=== PATIENT | female | born 1935 | race Caucasian/White ===

== ENCOUNTER → 2017-07-03 | Outpatient (CLI) | payer MEDICARE, OTHER ==
[~2017-07-03] MED LIST: ACYC400T PO; AML5T PO; AZAT50TA22 PO; BACL10TA; CALC1177 PO; CHOL20009 PO; FLUT250M2 INH; HYDR-4683 GT; HYDR12.56 PO; OMEP20CA74 PO; PERCOT PO; PRED-188 PO; TIOTCAP INH; WARF1TAB PO
[2017-07-03 14:12] LABS: Prothrombin Time 64.8 sec (9.37-12.3)
[2017-07-04 09:40] LABS: INR 5.84 (0.9-1.15)
== END | disposition home or self-care (01) ==
LOC: LAB 12:05
DX: Z86.711 Personal history of pulmonary embolism (principal)
CPT/HCPCS: 36415; 85610

== ENCOUNTER → 2017-07-14 | Outpatient (CLI) | payer MEDICARE, OTHER ==
[2017-07-14 15:15] LABS: INR 1.32 (0.9-1.15); Prothrombin Time 14.4 sec (9.37-12.3)
== END | disposition home or self-care (01) ==
LOC: LAB 14:08
DX: Z86.711 Personal history of pulmonary embolism (principal)
CPT/HCPCS: 36415; 85610

== ENCOUNTER → 2017-11-05 | Outpatient (CLI) | payer MEDICARE, OTHER | END | disposition home or self-care (01) | LOC: LAB 15:23 | PROVIDERS: ATTEND Obstetrics & Gynecology | DX: N39.0 Urinary tract infection, site not specified (principal); N18.3 Chronic kidney disease, stage 3 (moderate); J45.909 Unspecified asthma, uncomplicated | CPT/HCPCS: 87086 ==

== ENCOUNTER → 2017-11-11 | Outpatient (CLI) | payer MEDICARE, OTHER ==
[~2017-11-11] MED LIST changes: +ALBUTEROL SULF 2.5 MG/0.5ML(0.5%) NEB SOLN ONE; +IOHEXOL 300 MG/ML 100ML BOTTLE IJ ONE
== END | disposition home or self-care (01) ==
LOC: RT 10-29 08:16
PROVIDERS: ATTEND Internal Medicine Pulmonary Disease
DX: J44.9 Chronic obstructive pulmonary disease, unspecified (principal); I12.9 Hypertensive chronic kidney disease with stage 1 through stage 4 chronic kidney disease, or unspecified chronic kidney disease; N18.3 Chronic kidney disease, stage 3 (moderate)
CPT/HCPCS: 94060; 94640

== ENCOUNTER 2018-02-24 09:04 | Inpatient (IN) | payer MEDICARE, OTHER ==
[~2018-02-24] VITALS: Ht 152.4 cm; Wt 58.5 kg
[~2018-02-24 09:04] MED LIST changes: -ALBUTEROL SULF 2.5 MG/0.5ML(0.5%) NEB SOLN ONE; -IOHEXOL 300 MG/ML 100ML BOTTLE IJ ONE
[2018-02-24 09:37] LABS: Basophils # (auto) 0 uL; Basophils % (auto) 0.6 % (0.0-2.0); Eosinophils # (auto) 0.3 uL; Eosinophils % (auto) 4.2 % (0.0-7.0); Hematocrit 31.3 % (36.0-46.0); Hemoglobin 10.1 g/dL (12.2-16.2); Lymphocytes # (auto) 0.8 uL; Lymphocytes % (auto) 12.2 % (10.0-50.0); Mean Corpuscular Hemoglobin 27.9 pg (28.0-32.0); Mean Corpuscular Hgb Conc. 32.2 g/dL (32.0-36.0); Mean Corpuscular Volume 86.6 fL (80.0-100.0); Monocytes # (auto) 0.5 uL; Neutrophils # (auto) 4.7 uL; Platelet Count (auto) 321 10^3/uL (140-450); Red Blood Cells 3.61 10^6/uL (4.0-5.20); White Blood Cell 6.3 10^3/uL (4.4-10.8)
[2018-02-24 09:55] LABS: Alanine Aminotransferase 16 U/L (13-56); Albumin 3.5 g/dL (3.4-5.0); Alkaline Phosphatase 90 U/L (45-117); Anion Gap 9 (5-15); Aspartate Aminotransferase 9 U/L (15-37); BUN/Creatinine Ratio 20.6; Bilirubin, Total 0.3 mg/dL (0.2-1.0); Blood Urea Nitrogen 58 mg/dL (7-18); Carbon Dioxide 24 mmol/L (21-32); Chloride 106 mmol/L (98-107); GFR African American 21 mL/min; GFR Non-African American 17 mL/min; Glucose 87 mg/dL (74-106); Magnesium 2.3 mg/dL (1.6-2.6); Potassium 4.3 mmol/L (3.5-5.1); Sodium 139 mmol/L (136-145); Total Protein 7.3 g/dL (6.4-8.2)
[2018-02-24 11:29] LABS: Urine Bacteria NONE SEEN /hpf (None Seen); Urine Blood 3+ /uL (Negative); Urine WBC 15 /hpf (0 - 5)
[2018-02-24] MEDS ORDERED: SODIUM CHLORIDE 0.9% 1,000 ML IV ONE (12:00)
[2018-02-24] MEDS ORDERED: methylPREDNISolone SOD SUCC 500 MG in SODIUM CHL 0.9% 100 ML IV ONE (12:00)
[2018-02-24] MEDS ORDERED: amLODIPine BESYLATE 5 MG TAB PO ONE (13:45)
[2018-02-24] MEDS ORDERED: ONDANSETRON HCL 4 MG/2 ML VIAL IV PRN (13:45)
[2018-02-24] MEDS ORDERED: MORPHINE SULF INJ 2 MG/ML SYRINGE 1ML IV PRN (13:45)
[2018-02-24] MEDS ORDERED: cefTRIAXone 1GM/10ml IVPUSH 10 ML IV ONE ×2 (13:45)
[2018-02-24] MEDS: SODIUM CHLORIDE 0.9% 1,000 ML IV SCH (14:07)
[2018-02-24 15:49] VITALS: BP 155/70
[2018-02-24 16:25] VITALS: BP 158/70
[2018-02-24] MEDS ORDERED: UMEC1AER IN (16:33)
[2018-02-24] MEDS ORDERED: RISE35TA PO (16:33)
[2018-02-24 16:47] LABS: INR 2.33 (0.9-1.15); Prothrombin Time 23.8 sec (9.27-12.13)
[2018-02-24] MEDS: HYDROcodone-ACET 5/325MG TAB PO PRN (17:26)
[2018-02-24] MEDS: ALBUTEROL SULF 2.5 MG/0.5ML(0.5%) NEB SOLN NEB SCH (20:00)
[2018-02-24] MEDS: IPRATROPIUM BROM 0.5 MG/2.5ML INH SOL NEB SCH (20:01)
[2018-02-24 21:14] VITALS: BP 158/70
[2018-02-24 22:00] VITALS: BP 114/58
[2018-02-24 22:00] LABS: Protein, Urine 163.3 mg/dL (0.0-11.9)
[2018-02-25] MEDS: SODIUM CHLORIDE 0.9% 1,000 ML IV SCH ×2 (03:05→17:28)
[2018-02-25 05:00] VITALS: BP 129/61
[2018-02-25 06:07] LABS: INR 2.24 (0.9-1.15); Partial Thromboplastin Time 40.4 sec (23.78-33.04); Prothrombin Time 22.9 sec (9.27-12.13)
[2018-02-25 06:19] LABS: BUN/Creatinine Ratio 24.5; Calcium 8.5 mg/dL (8.5-10.1); Potassium 4.6 mmol/L (3.5-5.1)
[2018-02-25] MEDS: ALBUTEROL SULF 2.5 MG/0.5ML(0.5%) NEB SOLN NEB SCH ×5 (06:30→23:45)
[2018-02-25] MEDS: IPRATROPIUM BROM 0.5 MG/2.5ML INH SOL NEB SCH ×5 (06:30→23:44)
[2018-02-25 09:00] VITALS: BP 140/62
[2018-02-25] MEDS: cefTRIAXone 1GM/10ml IVPUSH 10 ML IV SCH (09:31)
[2018-02-25] MEDS: amLODIPine BESYLATE 5 MG TAB PO SCH (09:33)
[2018-02-25] MEDS: methylPREDNISolone SOD SUCC 1,000 MG in SODIUM CHL 0.9% 250 ML IV SCH (10:02)
[2018-02-25] MEDS ORDERED: PHYTONADIONE (VIT K)10 MG/ML 1ML VIAL SUBCUT ONE (12:30)
[2018-02-25 13:00] VITALS: BP 138/65
[2018-02-25 16:51] VITALS: BP 120/63
[2018-02-25 22:00] VITALS: BP 130/65
[2018-02-26] MEDS: SODIUM CHLORIDE 0.9% 1,000 ML IV SCH (04:49)
[2018-02-26 05:00] VITALS: BP 107/51
[2018-02-26 06:09] LABS: INR 1.73 (0.9-1.15); Partial Thromboplastin Time 32.2 sec (23.78-33.04); Prothrombin Time 17.9 sec (9.27-12.13)
[2018-02-26 06:29] LABS: BUN/Creatinine Ratio 30.3; Calcium 8.5 mg/dL (8.5-10.1); Potassium 4.1 mmol/L (3.5-5.1)
[2018-02-26] MEDS: ALBUTEROL SULF 2.5 MG/0.5ML(0.5%) NEB SOLN NEB SCH ×3 (07:47→19:22)
[2018-02-26] MEDS: IPRATROPIUM BROM 0.5 MG/2.5ML INH SOL NEB SCH ×3 (07:47→19:22)
[2018-02-26 08:11] VITALS: BP 134/69
[2018-02-26] MEDS: cefTRIAXone 1GM/10ml IVPUSH 10 ML IV SCH (09:45)
[2018-02-26] MEDS: amLODIPine BESYLATE 5 MG TAB PO SCH (09:46)
[2018-02-26 11:00] LABS: INR 1.44 (0.9-1.15); Partial Thromboplastin Time 29.6 sec (23.78-33.04); Prothrombin Time 15.1 sec (9.27-12.13)
[2018-02-26] MEDS: methylPREDNISolone SOD SUCC 1,000 MG in SODIUM CHL 0.9% 250 ML IV SCH (12:16)
[2018-02-26] MEDS ORDERED: ARTIFICIAL TEARS 15ml EACHEYE PRN (12:30)
[2018-02-26 13:00] VITALS: BP 140/74
[2018-02-26 16:15] VITALS: BP 151/64
[2018-02-26] MEDS ORDERED: SODIUM CHLORIDE 0.9% 1,000 ML IV SCH (16:45)
[2018-02-26] MEDS: HYDROcodone-ACET 5/325MG TAB PO PRN (16:48)
[2018-02-26 21:30] VITALS: BP 126/59
[2018-02-26] MEDS: ARTIFICIAL TEAR OPTH(EYE) OINT 3.5GM EACHEYE SCH (22:00)
[2018-02-27] VITALS (7 sets, daily range): BP systolic 127–138; BP diastolic 69–74
[2018-02-27 06:32] LABS: Calcium 8.5 mg/dL (8.5-10.1)
[2018-02-27 06:34] LABS: BUN/Creatinine Ratio 29.2
[2018-02-27] MEDS: IPRATROPIUM BROM 0.5 MG/2.5ML INH SOL NEB SCH ×4 (07:22→18:43)
[2018-02-27] MEDS: ALBUTEROL SULF 2.5 MG/0.5ML(0.5%) NEB SOLN NEB SCH ×4 (07:22→18:43)
[2018-02-27] MEDS: amLODIPine BESYLATE 5 MG TAB PO SCH (09:02)
[2018-02-27] MEDS: cefTRIAXone 1GM/10ml IVPUSH 10 ML IV SCH (09:02)
[2018-02-27] MEDS ORDERED: SODIUM CHLORIDE 0.9% 500 ML IV ONE (11:15)
[2018-02-27 12:32] LABS: Basophils # (auto) 0 uL; Eosinophils # (auto) 0 uL; Hematocrit 28.1 % (36.0-46.0); Hemoglobin 9.3 g/dL (12.2-16.2); Lymphocytes # (auto) 0.3 uL; Lymphocytes % (auto) 3.9 % (10.0-50.0); Mean Corpuscular Hemoglobin 29.1 pg (28.0-32.0); Mean Corpuscular Hgb Conc. 33.2 g/dL (32.0-36.0); Mean Corpuscular Volume 87.4 fL (80.0-100.0); Monocytes # (auto) 0.5 uL; Monocytes % (auto) 5.6 % (0.0-12.0); Neutrophils % (auto) 90.5 % (37.0-80.0); Platelet Count (auto) 319 10^3/uL (140-450); Red Blood Cells 3.22 10^6/uL (4.0-5.20); Red Cell Distribution Width 14.8 % (11.8-14.3); White Blood Cell 8.8 10^3/uL (4.4-10.8)
[2018-02-27] MEDS ORDERED: GELATIN 1 SPONGE SIZE 50 TOP ONE (13:07)
[2018-02-27] MEDS ORDERED: fentaNYL CITRATE 100 MCG/2 ML VL IV ONE ×2 (13:15→14:00)
[2018-02-27] MEDS ORDERED: fentaNYL CITRATE 100 MCG/2 ML VL ONE (13:20)
[2018-02-27] MEDS: HYDROcodone-ACET 5/325MG TAB PO PRN (14:39)
[2018-02-27] MEDS ORDERED: FUROSEMIDE 20 MG/2 ML VIAL IV ONE (15:15)
[2018-02-27 15:48] LABS: Hematocrit 27.5 % (36.0-46.0); Hemoglobin 9.2 g/dL (12.2-16.2); Mean Corpuscular Hgb Conc. 33.4 g/dL (32.0-36.0); Mean Corpuscular Volume 86.8 fL (80.0-100.0); Platelet Count (auto) 298 10^3/uL (140-450); Red Blood Cells 3.16 10^6/uL (4.0-5.20); Red Cell Distribution Width 14.7 % (11.8-14.3); White Blood Cell 7.1 10^3/uL (4.4-10.8)
[2018-02-27] MEDS: SODIUM CHLORIDE 0.9% 1,000 ML IV SCH (15:49)
[2018-02-27 16:50] LABS: Band Neutrophils % (manual) 0; Basophils % (manual) 0 (0.0-2.0); Blast Cells 0; Eosinophils % (manual) 0 (0-7); Metamyelocytes % 0; Myelocytes % 0; Promyelocytes % 0; Reactive Lymphocytes 0
[2018-02-27 17:27] LABS: Lymphocytes % (manual) 6 (10.0-50.0); Monocytes % (manual) 5 (0-12)
[2018-02-27] MEDS: ARTIFICIAL TEAR OPTH(EYE) OINT 3.5GM EACHEYE SCH (22:00)
[2018-02-28] VITALS (8 sets, daily range): BP systolic 133–152; BP diastolic 62–79
[2018-02-28] MEDS: ALBUTEROL SULF 2.5 MG/0.5ML(0.5%) NEB SOLN NEB SCH ×4 (00:40→19:11)
[2018-02-28] MEDS: IPRATROPIUM BROM 0.5 MG/2.5ML INH SOL NEB SCH ×4 (00:40→19:11)
[2018-02-28] MEDS: HYDROcodone-ACET 5/325MG TAB PO PRN ×3 (01:38→20:52)
[2018-02-28] MEDS: SODIUM CHLORIDE 0.9% 1,000 ML IV SCH ×2 (04:52→21:35)
[2018-02-28 06:08] LABS: Basophils # (auto) 0 uL; Eosinophils # (auto) 0 uL; Hematocrit 28.1 % (36.0-46.0); Hemoglobin 9.3 g/dL (12.2-16.2); Lymphocytes # (auto) 0.6 uL; Lymphocytes % (auto) 7.7 % (10.0-50.0); Mean Corpuscular Hemoglobin 28.6 pg (28.0-32.0); Mean Corpuscular Volume 86.5 fL (80.0-100.0); Monocytes # (auto) 0.9 uL; Monocytes % (auto) 11.3 % (0.0-12.0); Neutrophils # (auto) 6.4 uL; Nucleated Red Blood Cells % 0.1 %; Platelet Count (auto) 288 10^3/uL (140-450); Red Blood Cells 3.25 10^6/uL (4.0-5.20); Red Cell Distribution Width 14.6 % (11.8-14.3); White Blood Cell 7.9 10^3/uL (4.4-10.8)
[2018-02-28 06:34] LABS: BUN/Creatinine Ratio 27.9; Calcium 7.9 mg/dL (8.5-10.1); Potassium 3.8 mmol/L (3.5-5.1)
[2018-02-28] MEDS: amLODIPine BESYLATE 5 MG TAB PO SCH (09:18)
[2018-02-28] MEDS: cefTRIAXone 1GM/10ml IVPUSH 10 ML IV SCH (09:18)
[2018-02-28] MEDS: ARTIFICIAL TEAR OPTH(EYE) OINT 3.5GM EACHEYE SCH (22:00)
[2018-03-01 03:47] VITALS: BP 138/73
[2018-03-01] MEDS: ALBUTEROL SULF 2.5 MG/0.5ML(0.5%) NEB SOLN NEB SCH ×2 (06:00)
[2018-03-01] MEDS: IPRATROPIUM BROM 0.5 MG/2.5ML INH SOL NEB SCH ×2 (06:00)
[2018-03-01 06:55] LABS: Basophils # (auto) 0 uL; Basophils % (auto) 0.1 % (0.0-2.0); Eosinophils # (auto) 0.1 uL; Eosinophils % (auto) 1.3 % (0.0-7.0); Hematocrit 29.7 % (36.0-46.0); Lymphocytes # (auto) 0.8 uL; Lymphocytes % (auto) 10.9 % (10.0-50.0); Mean Corpuscular Hemoglobin 28.9 pg (28.0-32.0); Mean Corpuscular Hgb Conc. 33.5 g/dL (32.0-36.0); Mean Corpuscular Volume 86.2 fL (80.0-100.0); Monocytes # (auto) 0.6 uL; Monocytes % (auto) 8.2 % (0.0-12.0); Neutrophils % (auto) 79.5 % (37.0-80.0); Platelet Count (auto) 287 10^3/uL (140-450); Red Blood Cells 3.45 10^6/uL (4.0-5.20); Red Cell Distribution Width 14.4 % (11.8-14.3); White Blood Cell 7.6 10^3/uL (4.4-10.8)
[2018-03-01 06:58] LABS: Potassium 3.6 mmol/L (3.5-5.1)
[2018-03-01 07:05] LABS: BUN/Creatinine Ratio 25.5
[2018-03-01] MEDS: cefTRIAXone 1GM/10ml IVPUSH 10 ML IV SCH (08:51)
[2018-03-01 09:04] VITALS: BP 143/73
[2018-03-01] MEDS: amLODIPine BESYLATE 5 MG TAB PO SCH (10:00)
[2018-03-01] MEDS: HYDROcodone-ACET 5/325MG TAB PO PRN ×2 (12:00→14:01)
== END 2018-03-01 13:25 | disposition home or self-care (01) | DRG 542 ==
LOC: ER 09:04 → OVERFLOW 09:05 → WEST WING 15:48
PROVIDERS: ADMIT Internal Medicine; ATTEND Internal Medicine
PROC: 0TB13ZX Excision of Left Kidney, Percutaneous Approach, Diagnostic (ICD-10-PCS; principal; 2018-02-27)
DX: M31.31 Wegener's granulomatosis with renal involvement (principal); N17.0 Acute kidney failure with tubular necrosis; N39.0 Urinary tract infection, site not specified; N18.3 Chronic kidney disease, stage 3 (moderate); I48.91 Unspecified atrial fibrillation; J44.9 Chronic obstructive pulmonary disease, unspecified; I12.9 Hypertensive chronic kidney disease with stage 1 through stage 4 chronic kidney disease, or unspecified chronic kidney disease; I77.6 Arteritis, unspecified; K21.9 Gastro-esophageal reflux disease without esophagitis; Z79.01 Long term (current) use of anticoagulants; Z86.711 Personal history of pulmonary embolism; Z88.2 Allergy status to sulfonamides; Z88.5 Allergy status to narcotic agent
CPT/HCPCS: 10022; 36415; 71045; 74176; 76942; 80048; 80053; 81001; 82570; 83520; 83735; 84156; 84484; 85007; 85025; 85027; 85610; 85730; 86160; 86256; 93005; 94640; 96361; 96365; 96375; A6257; J0696; J3430

== ENCOUNTER 2018-03-16 09:23 | Inpatient (IN) | payer MEDICARE, OTHER ==
[~2018-03-16] VITALS: Ht 152.4 cm; Wt 57.7 kg
[~2018-03-16 09:23] MED LIST changes: -ACYC400T PO; -AZAT50TA22 PO; -FLUT250M2 INH; -HYDR-4683 GT; -HYDR12.56 PO; -OMEP20CA74 PO; -PRED-188 PO; +RISE35TA PO; +UMEC1AER IN
[2018-03-16] MEDS ORDERED: HYDROcodone-ACET 10/325MG TAB PO ONE (09:45)
[2018-03-16] MEDS ORDERED: LIDOCAINE 1% HCL (LOCAL ANESTH.) INJ 20ML MDV IJ ONE (10:15)
[2018-03-16 10:56] LABS: Basophils # (auto) 0 uL; Basophils % (auto) 0.3 % (0.0-2.0); Eosinophils # (auto) 0 uL; Eosinophils % (auto) 0.2 % (0.0-7.0); Hematocrit 31.1 % (36.0-46.0); Hemoglobin 10.2 g/dL (12.2-16.2); Lymphocytes # (auto) 0.5 uL; Lymphocytes % (auto) 3.9 % (10.0-50.0); Mean Corpuscular Hemoglobin 28.9 pg (28.0-32.0); Mean Corpuscular Hgb Conc. 32.8 g/dL (32.0-36.0); Mean Corpuscular Volume 88.1 fL (80.0-100.0); Monocytes # (auto) 0.9 uL; Monocytes % (auto) 7.5 % (0.0-12.0); Neutrophils # (auto) 10.9 uL; Neutrophils % (auto) 88.1 % (37.0-80.0); Platelet Count (auto) 228 10^3/uL (140-450); Red Blood Cells 3.53 10^6/uL (4.0-5.20); Red Cell Distribution Width 15.7 % (11.8-14.3); White Blood Cell 12.3 10^3/uL (4.4-10.8)
[2018-03-16 11:07] LABS: Urine Bacteria NONE SEEN /hpf (None Seen); Urine Blood 2+ /uL (Negative); Urine Specific Gravity 1.013 (1.001-1.035); Urine WBC 5 /hpf (0 - 5)
[2018-03-16 11:08] LABS: Albumin 3.1 g/dL (3.4-5.0); BUN/Creatinine Ratio 57.9; Calcium 8.8 mg/dL (8.5-10.1); Potassium 5.4 mmol/L (3.5-5.1)
[2018-03-16 11:10] LABS: INR 0.94 (0.9-1.15); Partial Thromboplastin Time 19.8 sec (23.78-33.04); Prothrombin Time 10.1 sec (9.27-12.13)
[2018-03-16 11:12] LABS: Bilirubin, Total 0.5 mg/dL (0.2-1.0); Total Protein 5.7 g/dL (6.4-8.2)
[2018-03-16] MEDS ORDERED: ALBUTEROL SULF 2.5 MG/0.5ML(0.5%) NEB SOLN HHN STA (11:40)
[2018-03-16] MEDS ORDERED: CALCIUM GLUC 4.65meq/50ml D5AE 50 ML IV ONE (11:45)
[2018-03-16] MEDS ORDERED: InsuLIN REG 1unit/0.01ml Soln (100units/ml) IV ONE (11:45)
[2018-03-16] MEDS ORDERED: SODIUM BICARBONATE 8.4% INJ 50ML SYRINGE IV ONE (11:45)
[2018-03-16] MEDS ORDERED: DEXTROSE (50%) 50ML SYRG IV ONE (11:45)
[2018-03-16] MEDS ORDERED: PANT40T PO (11:46)
[2018-03-16] MEDS ORDERED: SOD CHL 0.45% 1,000 ML IV ONE (12:30)
[2018-03-16] MEDS ORDERED: SULFAMETHOX W/TRIMETH(800/160MG) DS TAB PO ONE (12:45)
[2018-03-16] MEDS ORDERED: cefTRIAXone 1GM/10ml IVPUSH 10 ML IV ONE (13:30)
[2018-03-16] MEDS ORDERED: VANCOMYCIN PER PHARMACY 0 MG IV SCH (14:00)
[2018-03-16] MEDS ORDERED: WARFARIN SODIUM 1 MG TAB PO ONE (14:00)
[2018-03-16] MEDS ORDERED: WARFARIN SODIUM 5 MG TAB PO ONE (14:00)
[2018-03-16] MEDS ORDERED: DEXTROSE (50%) 50ML SYRG IV PRN (14:00)
[2018-03-16] MEDS ORDERED: ACETAMINOPHEN 325 MG TAB PO PRN (14:15)
[2018-03-16] MEDS ORDERED: MORPHINE SULF INJ 2 MG/ML SYRINGE 1ML IV PRN ×2 (14:15)
[2018-03-16] MEDS ORDERED: NITROGLYCERIN 0.4 MG SL TAB SL PRN (14:15)
[2018-03-16] MEDS ORDERED: TEMAZEPAM 15 MG CAP PO PRN (14:15)
[2018-03-16] MEDS ORDERED: ONDANSETRON HCL 4 MG/2 ML VIAL IV PRN (14:15)
[2018-03-16] MEDS ORDERED: predniSONE 20 MG TAB PO ONE (14:15)
[2018-03-16] MEDS: FAMOTIDINE 20 MG TAB PO SCH (14:25)
[2018-03-16 14:29] LABS: Protein, Urine 78.7 mg/dL (0.0-11.9)
[2018-03-16] MEDS ORDERED: VANCOMYCIN 1GM/250ML 250 ML IV ONE (15:00)
[2018-03-16] MEDS: InsuLIN REG 1unit/0.01ml Soln (100units/ml) SC SCH ×2 (17:00→21:47)
[2018-03-16] MEDS: ACCU-CHEK COMFORT CURVE STRIP VI SCH ×2 (17:09→21:47)
[2018-03-16 17:45] VITALS: BP 154/79
[2018-03-16] MEDS: Glucerna Carbsteady SHAKE Vanilla 8oz PO SCH (19:17)
[2018-03-16 19:19] LABS: BUN/Creatinine Ratio 47.8; Calcium 8.3 mg/dL (8.5-10.1); Potassium 4.6 mmol/L (3.5-5.1)
[2018-03-16] MEDS: CALCIUM CARB 500 MG CHEW TAB PO SCH (21:47)
[2018-03-16] MEDS: SODIUM CHLOR 0.9% PF (SALINE LOCK) 10ML VIAL/SYR IV SCH (21:48)
[2018-03-16] MEDS: OXYCODONE W/ ACETAMINOPHEN 5/325MG TABLET PO PRN (21:59)
[2018-03-16 22:00] VITALS: BP 130/56
[2018-03-16] MEDS ORDERED: FAMOTIDINE 20 MG TAB PO SCH (22:00)
[2018-03-17] MEDS ORDERED: HYDR12.56 PO (01:05)
[2018-03-17] MEDS: OXYCODONE W/ ACETAMINOPHEN 5/325MG TABLET PO PRN ×3 (04:41→23:42)
[2018-03-17 05:19] VITALS: BP 138/69
[2018-03-17 05:34] LABS: Basophils # (auto) 0 uL; Basophils % (auto) 0.1 % (0.0-2.0); Eosinophils # (auto) 0 uL; Hematocrit 28.4 % (36.0-46.0); Hemoglobin 9.3 g/dL (12.2-16.2); Lymphocytes # (auto) 0.1 uL; Lymphocytes % (auto) 1.4 % (10.0-50.0); Mean Corpuscular Hemoglobin 28.8 pg (28.0-32.0); Mean Corpuscular Hgb Conc. 32.9 g/dL (32.0-36.0); Mean Corpuscular Volume 87.4 fL (80.0-100.0); Monocytes # (auto) 0.4 uL; Monocytes % (auto) 3.7 % (0.0-12.0); Neutrophils # (auto) 9.4 uL; Neutrophils % (auto) 94.8 % (37.0-80.0); Nucleated Red Blood Cells % 0.1 %; Platelet Count (auto) 201 10^3/uL (140-450); Red Blood Cells 3.24 10^6/uL (4.0-5.20); Red Cell Distribution Width 15.9 % (11.8-14.3); White Blood Cell 9.9 10^3/uL (4.4-10.8)
[2018-03-17 05:38] LABS: INR 0.94 (0.9-1.15); Partial Thromboplastin Time 20.1 sec (23.78-33.04); Prothrombin Time 10.1 sec (9.27-12.13)
[2018-03-17 05:55] LABS: Albumin 2.9 g/dL (3.4-5.0); BUN/Creatinine Ratio 47.5; Bilirubin, Total 0.3 mg/dL (0.2-1.0); Calcium 8.3 mg/dL (8.5-10.1); Total Protein 5.6 g/dL (6.4-8.2)
[2018-03-17 06:11] LABS: Potassium 5.6 mmol/L (3.5-5.1)
[2018-03-17] MEDS: SODIUM CHLOR 0.9% PF (SALINE LOCK) 10ML VIAL/SYR IV SCH ×3 (06:11→21:48)
[2018-03-17] MEDS: InsuLIN REG 1unit/0.01ml Soln (100units/ml) SC SCH ×4 (06:12→21:37)
[2018-03-17] MEDS: ACCU-CHEK COMFORT CURVE STRIP VI SCH ×4 (06:12→21:38)
[2018-03-17] MEDS ORDERED: InsuLIN REG 1unit/0.01ml Soln (100units/ml) IV ONE (06:30)
[2018-03-17] MEDS ORDERED: CALCIUM GLUC 4.65meq/50ml D5AE 50 ML IV ONE (06:30)
[2018-03-17] MEDS ORDERED: DEXTROSE (50%) 50ML SYRG IV ONE (06:30)
[2018-03-17] MEDS ORDERED: SODIUM BICARBONATE 8.4% INJ 50ML SYRINGE IV ONE (06:30)
[2018-03-17] MEDS: Glucerna Carbsteady SHAKE Vanilla 8oz PO SCH ×3 (07:56→19:19)
[2018-03-17 08:04] VITALS: BP 131/72
[2018-03-17] MEDS: cefTRIAXone 1GM/10ml IVPUSH 10 ML IV SCH (09:12)
[2018-03-17] MEDS: predniSONE 20 MG TAB PO SCH (09:13)
[2018-03-17] MEDS: VANCOMYCIN 1GM/250ML 250 ML IV SCH (09:13)
[2018-03-17] MEDS: CHOLECALCIFEROL (VITD3) 1,000 UNIT TAB PO SCH (09:14)
[2018-03-17] MEDS: MULTIPLE VITAMIN TAB PO SCH (09:15)
[2018-03-17] MEDS: amLODIPine BESYLATE 5 MG TAB PO SCH (09:15)
[2018-03-17] MEDS: CALCIUM CARB 500 MG CHEW TAB PO SCH ×2 (09:15→21:48)
[2018-03-17] MEDS: FAMOTIDINE 20 MG TAB PO SCH (09:16)
[2018-03-17] MEDS ORDERED: HCTZ 25 MG TAB PO SCH (10:00)
[2018-03-17 11:51] VITALS: BP 147/80
[2018-03-17] MEDS ORDERED: SOD CHL 0.45% 1,000 ML IV ONE (13:15)
[2018-03-17] MEDS: ANORO ELLIPTA IN SCH (14:51)
[2018-03-17] MEDS ORDERED: WARFARIN SODIUM 2 MG TAB PO ONE (17:00)
[2018-03-17 17:42] VITALS: BP 139/58
[2018-03-17] MEDS ORDERED: ALPRAZolam 0.25 MG TAB PO ONE (18:00)
[2018-03-17 22:00] VITALS: BP 116/54
[2018-03-18 05:00] VITALS: BP 153/74
[2018-03-18 06:58] LABS: Basophils # (auto) 0 uL; Basophils % (auto) 0.1 % (0.0-2.0); Eosinophils # (auto) 0 uL; Eosinophils % (auto) 0.4 % (0.0-7.0); Hematocrit 28.8 % (36.0-46.0); Hemoglobin 9.9 g/dL (12.2-16.2); Lymphocytes # (auto) 0.5 uL; Lymphocytes % (auto) 5.1 % (10.0-50.0); Mean Corpuscular Hemoglobin 30.1 pg (28.0-32.0); Mean Corpuscular Hgb Conc. 34.4 g/dL (32.0-36.0); Mean Corpuscular Volume 87.6 fL (80.0-100.0); Monocytes # (auto) 0.7 uL; Neutrophils # (auto) 7.7 uL; Neutrophils % (auto) 86.4 % (37.0-80.0); Nucleated Red Blood Cells % 0.1 %; Platelet Count (auto) 179 10^3/uL (140-450); Red Blood Cells 3.29 10^6/uL (4.0-5.20); Red Cell Distribution Width 15.4 % (11.8-14.3); White Blood Cell 8.9 10^3/uL (4.4-10.8)
[2018-03-18] MEDS: InsuLIN REG 1unit/0.01ml Soln (100units/ml) SC SCH ×4 (07:00→21:42)
[2018-03-18 07:07] LABS: INR 1.1 (0.9-1.15); Partial Thromboplastin Time 22.8 sec (23.78-33.04); Prothrombin Time 11.7 sec (9.27-12.13)
[2018-03-18] MEDS: SODIUM CHLOR 0.9% PF (SALINE LOCK) 10ML VIAL/SYR IV SCH ×3 (07:14→21:26)
[2018-03-18] MEDS: ACCU-CHEK COMFORT CURVE STRIP VI SCH ×4 (07:15→21:26)
[2018-03-18 07:22] LABS: BUN/Creatinine Ratio 45.9; Calcium 8.4 mg/dL (8.5-10.1)
[2018-03-18] MEDS: OXYCODONE W/ ACETAMINOPHEN 5/325MG TABLET PO PRN ×3 (07:37→23:57)
[2018-03-18] MEDS: Glucerna Carbsteady SHAKE Vanilla 8oz PO SCH ×3 (08:01→18:08)
[2018-03-18 09:02] VITALS: BP 150/72
[2018-03-18] MEDS: ANORO ELLIPTA IN SCH (10:00)
[2018-03-18] MEDS: MULTIPLE VITAMIN TAB PO SCH (10:20)
[2018-03-18] MEDS: CHOLECALCIFEROL (VITD3) 1,000 UNIT TAB PO SCH (10:20)
[2018-03-18] MEDS: DOCUSATE SOD 100 MG CAP PO PRN (10:20)
[2018-03-18] MEDS: predniSONE 20 MG TAB PO SCH (10:21)
[2018-03-18] MEDS: CALCIUM CARB 500 MG CHEW TAB PO SCH ×2 (10:22→21:25)
[2018-03-18] MEDS: amLODIPine BESYLATE 5 MG TAB PO SCH (10:22)
[2018-03-18] MEDS: FAMOTIDINE 20 MG TAB PO SCH (10:22)
[2018-03-18] MEDS: VANCOMYCIN 1GM/250ML 250 ML IV SCH (10:23)
[2018-03-18] MEDS: cefTRIAXone 1GM/10ml IVPUSH 10 ML IV SCH (10:23)
[2018-03-18 15:20] VITALS: BP 155/68
[2018-03-18] MEDS ORDERED: LIDOCAINE 5% TOPICAL PATCH TOP ONE (15:30)
[2018-03-18 17:00] VITALS: BP 142/79
[2018-03-18] MEDS ORDERED: WARFARIN SODIUM 5 MG TAB PO ONE (17:00)
[2018-03-18 22:00] VITALS: BP 125/67
[2018-03-19 05:00] VITALS: BP 161/78
[2018-03-19] MEDS: ACCU-CHEK COMFORT CURVE STRIP VI SCH ×4 (06:20→22:00)
[2018-03-19] MEDS: SODIUM CHLOR 0.9% PF (SALINE LOCK) 10ML VIAL/SYR IV SCH ×3 (06:20→21:39)
[2018-03-19] MEDS: InsuLIN REG 1unit/0.01ml Soln (100units/ml) SC SCH ×4 (06:21→22:01)
[2018-03-19 08:00] VITALS: BP 150/72
[2018-03-19] MEDS: Glucerna Carbsteady SHAKE Vanilla 8oz PO SCH ×3 (08:13→17:53)
[2018-03-19] MEDS: MULTIPLE VITAMIN TAB PO SCH (08:13)
[2018-03-19] MEDS: DOCUSATE SOD 100 MG CAP PO PRN (08:13)
[2018-03-19] MEDS: CALCIUM CARB 500 MG CHEW TAB PO SCH ×2 (08:13→21:39)
[2018-03-19] MEDS: amLODIPine BESYLATE 5 MG TAB PO SCH (08:18)
[2018-03-19] MEDS: OXYCODONE W/ ACETAMINOPHEN 5/325MG TABLET PO PRN ×3 (08:19→20:13)
[2018-03-19] MEDS: predniSONE 20 MG TAB PO SCH (08:19)
[2018-03-19] MEDS: CHOLECALCIFEROL (VITD3) 1,000 UNIT TAB PO SCH (08:19)
[2018-03-19] MEDS: FAMOTIDINE 20 MG TAB PO SCH (08:19)
[2018-03-19] MEDS: cefTRIAXone 1GM/10ml IVPUSH 10 ML IV SCH (08:20)
[2018-03-19 09:00] VITALS: BP 131/66
[2018-03-19 09:33] LABS: INR 1.75 (0.9-1.15); Partial Thromboplastin Time 25.2 sec (23.78-33.04); Prothrombin Time 18.1 sec (9.27-12.13)
[2018-03-19 09:48] LABS: Albumin 2.8 g/dL (3.4-5.0); BUN/Creatinine Ratio 45.2; Calcium 8.2 mg/dL (8.5-10.1); Potassium 4.3 mmol/L (3.5-5.1)
[2018-03-19 09:51] LABS: Bilirubin, Total 0.6 mg/dL (0.2-1.0); Total Protein 5.8 g/dL (6.4-8.2)
[2018-03-19] MEDS: ANORO ELLIPTA IN SCH (10:00)
[2018-03-19] MEDS: VANCOMYCIN 1GM/250ML 250 ML IV SCH (10:08)
[2018-03-19] MEDS: LIDOCAINE 5% TOPICAL PATCH TOP SCH (10:08)
[2018-03-19] MEDS ORDERED: SODIUM CHLORIDE 0.9% 1,000 ML IV ONE (10:15)
[2018-03-19 13:00] VITALS: BP 134/68
[2018-03-19] MEDS ORDERED: LACTULOSE 20Gm/30ML SOLN PO PRN (14:00)
[2018-03-19] MEDS ORDERED: LACTULOSE 20Gm/30ML SOLN PO ONE (14:00)
[2018-03-19] MEDS ORDERED: WARFARIN SODIUM 5 MG TAB PO ONE (17:00)
[2018-03-19 17:04] VITALS: BP 148/74
[2018-03-19 22:00] VITALS: BP_SYST 109; BP_SYST 141; BP_DIAS 60; BP_DIAS 70
[2018-03-20] VITALS (7 sets, daily range): BP systolic 103–140; BP diastolic 61–82
[2018-03-20] MEDS: InsuLIN REG 1unit/0.01ml Soln (100units/ml) SC SCH ×4 (05:41→21:01)
[2018-03-20] MEDS: ACCU-CHEK COMFORT CURVE STRIP VI SCH ×4 (05:41→21:01)
[2018-03-20] MEDS: SODIUM CHLOR 0.9% PF (SALINE LOCK) 10ML VIAL/SYR IV SCH ×3 (05:42→21:01)
[2018-03-20 07:41] LABS: Hematocrit 34.4 % (36.0-46.0); Hemoglobin 11.7 g/dL (12.2-16.2)
[2018-03-20] MEDS: OXYCODONE W/ ACETAMINOPHEN 5/325MG TABLET PO PRN ×2 (07:46→18:06)
[2018-03-20 07:53] LABS: INR 3.82 (0.9-1.15); Prothrombin Time 37.9 sec (9.27-12.13)
[2018-03-20 08:00] LABS: BUN/Creatinine Ratio 44.6; Calcium 8.6 mg/dL (8.5-10.1); Potassium 4.7 mmol/L (3.5-5.1)
[2018-03-20] MEDS: ANORO ELLIPTA IN SCH (09:44)
[2018-03-20] MEDS: VANCOMYCIN 1GM/250ML 250 ML IV SCH (09:44)
[2018-03-20] MEDS: cefTRIAXone 1GM/10ml IVPUSH 10 ML IV SCH (09:44)
[2018-03-20] MEDS: Glucerna Carbsteady SHAKE Vanilla 8oz PO SCH ×3 (09:44→18:06)
[2018-03-20] MEDS: FAMOTIDINE 20 MG TAB PO SCH (09:45)
[2018-03-20] MEDS: MULTIPLE VITAMIN TAB PO SCH (09:45)
[2018-03-20] MEDS: amLODIPine BESYLATE 5 MG TAB PO SCH (09:45)
[2018-03-20] MEDS: CALCIUM CARB 500 MG CHEW TAB PO SCH ×2 (09:45→21:01)
[2018-03-20] MEDS: predniSONE 20 MG TAB PO SCH (09:45)
[2018-03-20] MEDS: CHOLECALCIFEROL (VITD3) 1,000 UNIT TAB PO SCH (09:45)
[2018-03-20] MEDS: LIDOCAINE 5% TOPICAL PATCH TOP SCH (09:46)
[2018-03-20] MEDS ORDERED: DOXYCYCLINE 100 MG TAB/CAP PO ONE (10:45)
[2018-03-20] MEDS: DOCUSATE SOD 100 MG CAP PO PRN (12:22)
[2018-03-20] MEDS: CARISOPRODOL 350 MG TAB PO PRN (13:44)
[2018-03-20] MEDS: DOXYCYCLINE 100 MG TAB/CAP PO SCH (21:01)
[2018-03-21 00:12] VITALS: BP 140/82
[2018-03-21 05:00] VITALS: BP 149/69
[2018-03-21 05:45] LABS: Basophils # (auto) 0 uL; Basophils % (auto) 0.1 % (0.0-2.0); Eosinophils # (auto) 0 uL; Eosinophils % (auto) 0.5 % (0.0-7.0); Hematocrit 30.9 % (36.0-46.0); Hemoglobin 10.4 g/dL (12.2-16.2); Lymphocytes # (auto) 0.4 uL; Lymphocytes % (auto) 6.4 % (10.0-50.0); Mean Corpuscular Hemoglobin 29.2 pg (28.0-32.0); Mean Corpuscular Hgb Conc. 33.6 g/dL (32.0-36.0); Mean Corpuscular Volume 86.8 fL (80.0-100.0); Monocytes # (auto) 0.5 uL; Monocytes % (auto) 7.9 % (0.0-12.0); Neutrophils # (auto) 4.9 uL; Neutrophils % (auto) 85.1 % (37.0-80.0); Platelet Count (auto) 184 10^3/uL (140-450); Red Blood Cells 3.56 10^6/uL (4.0-5.20); Red Cell Distribution Width 15.7 % (11.8-14.3); White Blood Cell 5.8 10^3/uL (4.4-10.8)
[2018-03-21] MEDS: OXYCODONE W/ ACETAMINOPHEN 5/325MG TABLET PO PRN (05:48)
[2018-03-21 05:57] LABS: Prothrombin Time 55.5 sec (9.27-12.13)
[2018-03-21] MEDS: SODIUM CHLOR 0.9% PF (SALINE LOCK) 10ML VIAL/SYR IV SCH (06:00)
[2018-03-21 06:01] LABS: INR 5.73 (0.9-1.15)
[2018-03-21 06:04] LABS: BUN/Creatinine Ratio 43.9; Potassium 4.9 mmol/L (3.5-5.1)
[2018-03-21] MEDS: InsuLIN REG 1unit/0.01ml Soln (100units/ml) SC SCH ×2 (07:00→11:26)
[2018-03-21] MEDS: ACCU-CHEK COMFORT CURVE STRIP VI SCH ×2 (07:24→11:26)
[2018-03-21 08:00] VITALS: BP 137/72
[2018-03-21] MEDS: MULTIPLE VITAMIN TAB PO SCH (09:44)
[2018-03-21] MEDS: predniSONE 20 MG TAB PO SCH (09:44)
[2018-03-21] MEDS: CHOLECALCIFEROL (VITD3) 1,000 UNIT TAB PO SCH (09:44)
[2018-03-21] MEDS: FAMOTIDINE 20 MG TAB PO SCH (09:44)
[2018-03-21] MEDS: CALCIUM CARB 500 MG CHEW TAB PO SCH (09:44)
[2018-03-21] MEDS: DOXYCYCLINE 100 MG TAB/CAP PO SCH (09:44)
[2018-03-21] MEDS: CARISOPRODOL 350 MG TAB PO PRN (09:45)
[2018-03-21] MEDS: amLODIPine BESYLATE 5 MG TAB PO SCH (09:45)
[2018-03-21] MEDS: Glucerna Carbsteady SHAKE Vanilla 8oz PO SCH (09:46)
[2018-03-21] MEDS: ANORO ELLIPTA IN SCH (10:00)
[2018-03-21] MEDS: LIDOCAINE 5% TOPICAL PATCH TOP SCH (10:00)
[2018-03-21 12:36] VITALS: BP 122/62
[2018-03-21 16:35] VITALS: BP 128/78
[2018-03-22] MEDS ORDERED: ACTONEL 35 MG PO SCH (06:00)
[2018-03-23 14:12] LABS: Hepatitis B Surface Antigen Negative (Negative); Hepatitis C Antibody Negative (Negative)
[2018-03-24 06:05] LABS: RPR Non Reactive (Non Reactive)
== END 2018-03-21 16:15 | disposition home health service (06) | DRG 871 ==
LOC: ER 09:23 → EDBD 09:23 → TELE 09:24 → TELE-WESTW 17:28 → WEST WING 03-19 11:54
PROVIDERS: ADMIT Internal Medicine; ATTEND Internal Medicine
DX: A41.9 Sepsis, unspecified organism (principal); I26.99 Other pulmonary embolism without acute cor pulmonale; N17.9 Acute kidney failure, unspecified; M31.30 Wegener's granulomatosis without renal involvement; E44.0 Moderate protein-calorie malnutrition; N39.0 Urinary tract infection, site not specified; S37.019A Minor contusion of unspecified kidney, initial encounter; E87.5 Hyperkalemia; J44.9 Chronic obstructive pulmonary disease, unspecified; N18.3 Chronic kidney disease, stage 3 (moderate); I77.6 Arteritis, unspecified; D63.8 Anemia in other chronic diseases classified elsewhere; I12.9 Hypertensive chronic kidney disease with stage 1 through stage 4 chronic kidney disease, or unspecified chronic kidney disease; I25.10 Atherosclerotic heart disease of native coronary artery without angina pectoris; K21.9 Gastro-esophageal reflux disease without esophagitis; K57.30 Diverticulosis of large intestine without perforation or abscess without bleeding; M81.0 Age-related osteoporosis without current pathological fracture; B96.89 Other specified bacterial agents as the cause of diseases classified elsewhere; M19.90 Unspecified osteoarthritis, unspecified site; M54.9 Dorsalgia, unspecified; M62.838 Other muscle spasm; R73.9 Hyperglycemia, unspecified; X58.XXXA Exposure to other specified factors, initial encounter; T38.0X5A Adverse effect of glucocorticoids and synthetic analogues, initial encounter; T37.0X5A Adverse effect of sulfonamides, initial encounter; Y92.89 Other specified places as the place of occurrence of the external cause; Z88.5 Allergy status to narcotic agent; Z88.2 Allergy status to sulfonamides; Z90.49 Acquired absence of other specified parts of digestive tract; Z79.01 Long term (current) use of anticoagulants; Z86.711 Personal history of pulmonary embolism; Z90.710 Acquired absence of both cervix and uterus; Z68.24 Body mass index [BMI] 24.0-24.9, adult; Y93.89 Activity, other specified; Y99.8 Other external cause status
CPT/HCPCS: 36415; 74176; 80048; 80053; 80202; 81001; 82570; 82962; 83036; 83520; 84156; 84443; 85014; 85018; 85025; 85610; 85730; 86038; 86160; 86256; 86592; 86803; 87040; 87077; 87081; 87086; 87186; 87340; 93005; 94640; 96374; 96375; 97110; 97116; 97163; 97530; J0610; J0696; J1815

== ENCOUNTER 2018-03-30 14:04 | Emergency (ER) | payer MEDICARE, OTHER ==
[~2018-03-30] VITALS: Ht 152.4 cm; Wt 57.6 kg
[~2018-03-30 14:04] MED LIST changes: -BACL10TA; +HYDR12.56 PO; +PANT40T PO; -TIOTCAP INH
[2018-03-30] MEDS ORDERED: OXYCODONE W/ ACETAMINOPHEN 5/325MG TABLET PO ONE (15:15)
[2018-03-30 16:49] VITALS: BP 142/74
== END 2018-03-30 16:54 | disposition home or self-care (01) ==
LOC: EDUNIT# 14:04 → EDBD 14:04 → ER 14:04
DX: M54.5 Low back pain (principal); M79.1 Myalgia; J44.9 Chronic obstructive pulmonary disease, unspecified; K21.9 Gastro-esophageal reflux disease without esophagitis; I10 Essential (primary) hypertension; I26.99 Other pulmonary embolism without acute cor pulmonale; Z88.5 Allergy status to narcotic agent; Z88.2 Allergy status to sulfonamides; Z79.899 Other long term (current) drug therapy; Z90.710 Acquired absence of both cervix and uterus
CPT/HCPCS: 74176; 93005

== ENCOUNTER 2018-04-05 17:22 | Inpatient (IN) | payer MEDICARE, OTHER ==
[~2018-04-05] VITALS: Ht 162.6 cm; Wt 70.5 kg
[2018-04-05] MEDS ORDERED: SODIUM CHLORIDE 0.9% 1,000 ML IVB ONE (18:05)
[2018-04-05 18:27] LABS: Hematocrit 29.1 % (36.0-46.0); Hemoglobin 9.7 g/dL (12.2-16.2); Mean Corpuscular Hemoglobin 29.9 pg (28.0-32.0); Mean Corpuscular Hgb Conc. 33.3 g/dL (32.0-36.0); Mean Corpuscular Volume 89.8 fL (80.0-100.0); Platelet Count (auto) 116 10^3/uL (140-450); Red Blood Cells 3.24 10^6/uL (4.0-5.20); Red Cell Distribution Width 17.6 % (11.8-14.3); White Blood Cell 7.7 10^3/uL (4.4-10.8)
[2018-04-05 18:33] LABS: Basophils % (manual) 0 (0.0-2.0); Blast Cells 0; Eosinophils % (manual) 0 (0-7); Metamyelocytes % 0; Myelocytes % 0; Promyelocytes % 0; Reactive Lymphocytes 0
[2018-04-05 18:39] LABS: Albumin 2.7 g/dL (3.4-5.0); BUN/Creatinine Ratio 43.8; Magnesium 2.2 mg/dL (1.6-2.6)
[2018-04-05 18:44] LABS: Bilirubin, Total 0.4 mg/dL (0.2-1.0); Total Protein 5.5 g/dL (6.4-8.2)
[2018-04-05] MEDS ORDERED: SODIUM CHLORIDE 0.9% 500 ML IV ONE (18:45)
[2018-04-05 19:02] LABS: Potassium 5.6 mmol/L (3.5-5.1)
[2018-04-05 19:07] LABS: Band Neutrophils % (manual) 1; Lymphocytes % (manual) 6 (10.0-50.0); Monocytes % (manual) 3 (0-12)
[2018-04-05] MEDS ORDERED: ONDANSETRON HCL 4 MG/2 ML VIAL IV ONE (20:00)
[2018-04-05] MEDS ORDERED: DEXTROSE (50%) 50ML SYRG IV ONE (20:00)
[2018-04-05] MEDS ORDERED: SODIUM BICARBONATE 8.4 % INJ 50ML VIAL IV ONE (20:00)
[2018-04-05] MEDS ORDERED: InsuLIN REG 1unit/0.01ml Soln (100units/ml) IV ONE (20:00)
[2018-04-05] MEDS ORDERED: MORPHINE SULF INJ 2 MG/ML SYRINGE 1ML IV ONE (20:00)
[2018-04-05] MEDS ORDERED: cefTRIAXone 1GM/10ml IVPUSH 10 ML IV ONE (21:45)
[2018-04-05] MEDS ORDERED: IPRATROPIUM BROM 0.5 MG/2.5ML INH SOL NEB ONE (23:00)
[2018-04-05] MEDS ORDERED: TEMAZEPAM 15 MG CAP PO PRN (23:00)
[2018-04-05] MEDS ORDERED: ALBUTEROL SULF 2.5 MG/0.5ML(0.5%) NEB SOLN NEB ONE (23:00)
[2018-04-05] MEDS ORDERED: ONDANSETRON HCL 4 MG/2 ML VIAL IV PRN (23:00)
[2018-04-05] MEDS ORDERED: ACETAMINOPHEN 500 MG TAB PO PRN (23:00)
[2018-04-05] MEDS ORDERED: HYDROcodone-ACET 5/325MG TAB PO PRN (23:00)
[2018-04-05] MEDS ORDERED: FUROSEMIDE 20 MG/2 ML VIAL IV ONE ×2 (23:00→23:15)
[2018-04-05] MEDS: DOXYCYCLINE 100MG/250ML 250 ML IV SCH (23:48)
[2018-04-06] VITALS (15 sets, daily range): BP systolic 57–155; BP diastolic 29–89
[2018-04-06] MEDS ORDERED: OXYCODONE W/ ACETAMINOPHEN 5/325MG TABLET PO PRN (02:00)
[2018-04-06 02:20] LABS: Urine Bacteria MOD /hpf (None Seen); Urine Blood 3+ /uL (Negative); Urine WBC 28 /hpf (0 - 5)
[2018-04-06] MEDS: ALBUTEROL SULF 2.5 MG/0.5ML(0.5%) NEB SOLN NEB SCH ×4 (05:54→23:55)
[2018-04-06] MEDS: IPRATROPIUM BROM 0.5 MG/2.5ML INH SOL NEB SCH ×4 (05:54→23:55)
[2018-04-06 06:17] LABS: Basophils # (auto) 0 uL; Basophils % (auto) 0.1 % (0.0-2.0); Eosinophils # (auto) 0 uL; Monocytes # (auto) 0.3 uL; Neutrophils # (auto) 5.1 uL; White Blood Cell 5.9 10^3/uL (4.4-10.8)
[2018-04-06 06:23] LABS: Eosinophils % (auto) 0.5 % (0.0-7.0); Hematocrit 24.8 % (36.0-46.0); Hemoglobin 7.7 g/dL (12.2-16.2); Lymphocytes # (auto) 0.5 uL; Lymphocytes % (auto) 7.7 % (10.0-50.0); Mean Corpuscular Hemoglobin 28.6 pg (28.0-32.0); Mean Corpuscular Volume 92.2 fL (80.0-100.0); Monocytes % (auto) 5.3 % (0.0-12.0); Neutrophils % (auto) 86.4 % (37.0-80.0); Platelet Count (auto) 98 10^3/uL (140-450); Red Blood Cells 2.69 10^6/uL (4.0-5.20)
[2018-04-06 06:47] LABS: BUN/Creatinine Ratio 42.8; Calcium 7.7 mg/dL (8.5-10.1); Potassium 5.4 mmol/L (3.5-5.1)
[2018-04-06] MEDS: MORPHINE SULF INJ 2 MG/ML SYRINGE 1ML IV PRN ×3 (08:34→19:46)
[2018-04-06] MEDS ORDERED: HCTZ 25 MG TAB PO SCH (10:00)
[2018-04-06] MEDS ORDERED: PANTOPRAZOLE 40 MG TAB PO SCH (10:00)
[2018-04-06] MEDS ORDERED: predniSONE 20 MG TAB PO SCH (10:00)
[2018-04-06] MEDS: DOXYCYCLINE 100MG/250ML 250 ML IV SCH (10:25)
[2018-04-06 10:48] LABS: INR > 10 (0.9-1.15)
[2018-04-06] MEDS ORDERED: PIPERACILLIN-TAZOB 3.375GM 100 ML IV SCH (14:00)
[2018-04-06] MEDS ORDERED: cefTRIAXone 1GM/10ml IVPUSH 10 ML IV ONE (14:00)
[2018-04-06] MEDS ORDERED: PHYTONADIONE (VIT K)10 MG/ML 1ML VIAL SUBCUT ONE (14:15)
[2018-04-06] MEDS ORDERED: AZITHROMYCIN 500MG/ 250ML 250 ML IV ONE (14:30)
[2018-04-06] MEDS ORDERED: SODIUM CHLORIDE 0.9% 500 ML IV ONE ×2 (15:30→22:15)
[2018-04-06] MEDS ORDERED: WARFARIN SODIUM 1 MG TAB PO SCH (17:00)
[2018-04-06] MEDS: Nepro With Carbsteady ButterPecan 8oz Carton PO SCH (18:00)
[2018-04-06] MEDS ORDERED: FUROSEMIDE 40 MG/4 ML VIAL IV ONE (18:00)
[2018-04-06 19:05] LABS: Urine Bacteria FEW /hpf (None Seen); Urine Blood 3+ /uL (Negative); Urine WBC 53 /hpf (0 - 5); Urine WBC Clumps PRESENT /hpf (None Seen)
[2018-04-06 20:41] LABS: Protein, Urine 74.3 mg/dL (0.0-11.9)
[2018-04-06] MEDS ORDERED: SUCCINYLCHOLINE CHLORIDE 20 MG/ML 10ML VIAL IV ONE (21:16)
[2018-04-06] MEDS ORDERED: ETOMIDATE (2MG/ML) 20ML VIAL IV ONE (21:16)
[2018-04-06] MEDS: MIDAZOLAM DRIP 50 mg/50mL 50 ML IV SCH (21:25)
[2018-04-06] MEDS: NOREPINEPHRINE 8 MG/250ML KIT 250 ML IV SCH (21:26)
[2018-04-06] MEDS ORDERED: MIDAZOLAM DRIP 50 mg/50mL 50 ML IV ONE (21:29)
[2018-04-06] MEDS ORDERED: ACETAMINOPHEN 650 mg PER 20 mL UD GT PRN (21:30)
[2018-04-06] MEDS ORDERED: VANCOMYCIN PER PHARMACY 0 MG IV SCH (21:45)
[2018-04-06] MEDS ORDERED: VANCOMYCIN 1GM/250ML 250 ML IV ONE (22:15)
[2018-04-06 22:24] LABS: % Iron Saturation 50.4 % (15-50)
[2018-04-06] MEDS ORDERED: ALBUMIN 25% 50 ML IV ONE ×2 (23:19→23:45)
[2018-04-06 23:32] LABS: Hematocrit 20.7 % (36.0-46.0)
[2018-04-06 23:38] LABS: Hemoglobin 6.4 g/dL (12.2-16.2)
[2018-04-06] MEDS: methylPREDNISolone SOD SUCC 40 MG/ML VL IV SCH (23:38)
[2018-04-06] MEDS ORDERED: SODIUM BICARBONATE 8.4% INJ 50ML SYRINGE ONE (23:55)
[2018-04-07] VITALS (120 sets, daily range): BP systolic 78–172; BP diastolic 42–115
[2018-04-07] MEDS ORDERED: SODIUM BICARBONATE 8.4 % INJ 50ML VIAL IV ONE
[2018-04-07] MEDS: ALBUTEROL SULF 2.5 MG/0.5ML(0.5%) NEB SOLN NEB SCH ×3 (06:12→18:53)
[2018-04-07] MEDS: IPRATROPIUM BROM 0.5 MG/2.5ML INH SOL NEB SCH ×3 (06:12→18:53)
[2018-04-07] MEDS: MIDAZOLAM DRIP 50 mg/50mL 50 ML IV SCH ×3 (07:49→22:55)
[2018-04-07] MEDS: Nepro With Carbsteady ButterPecan 8oz Carton PO SCH ×3 (08:00→18:00)
[2018-04-07] MEDS ORDERED: PANTOPRAZOLE 40 MG/10 ML VIAL IV SCH (10:00)
[2018-04-07] MEDS: methylPREDNISolone SOD SUCC 40 MG/ML VL IV SCH ×2 (10:23→22:00)
[2018-04-07] MEDS: cefTRIAXone 1GM/10ml IVPUSH 10 ML IV SCH (10:23)
[2018-04-07] MEDS: FUROSEMIDE 40 MG/4 ML VIAL IV SCH (10:27)
[2018-04-07] MEDS: AZITHROMYCIN 500MG/ 250ML 250 ML IV SCH (10:27)
[2018-04-07 10:32] LABS: Hemoglobin 8.4 g/dL (12.2-16.2)
[2018-04-07 10:35] LABS: Hematocrit 24.4 % (36.0-46.0); Mean Corpuscular Hemoglobin 29.6 pg (28.0-32.0); Mean Corpuscular Hgb Conc. 34.4 g/dL (32.0-36.0); Mean Corpuscular Volume 86.2 fL (80.0-100.0); Platelet Count (auto) 85 10^3/uL (140-450); Red Blood Cells 2.83 10^6/uL (4.0-5.20); Red Cell Distribution Width 15.2 % (11.8-14.3); White Blood Cell 5.7 10^3/uL (4.4-10.8)
[2018-04-07 10:37] LABS: Basophils % (manual) 0 (0.0-2.0); Blast Cells 0; Eosinophils % (manual) 0 (0-7); Metamyelocytes % 0; Myelocytes % 0; Promyelocytes % 0; Reactive Lymphocytes 0
[2018-04-07 10:51] LABS: Prothrombin Time 39.9 sec (9.27-12.13)
[2018-04-07 11:08] LABS: INR 4.04 (0.9-1.15)
[2018-04-07 11:13] LABS: Band Neutrophils % (manual) 4; Lymphocytes % (manual) 4 (10.0-50.0); Monocytes % (manual) 2 (0-12)
[2018-04-07 11:14] LABS: Albumin 2.3 g/dL (3.4-5.0); BUN/Creatinine Ratio 35.4; Bilirubin, Total 0.6 mg/dL (0.2-1.0); Calcium 6.7 mg/dL (8.5-10.1); Phosphorus 8.7 mg/dL (2.5-4.90); Total Protein 4.5 g/dL (6.4-8.2); Uric Acid 10.5 mg/dL (2.6-6.0)
[2018-04-07 11:17] LABS: Potassium 5.6 mmol/L (3.5-5.1)
[2018-04-07 11:35] LABS: % Iron Saturation 56.4 % (15-50)
[2018-04-07] MEDS: NOREPINEPHRINE 8 MG/250ML KIT 250 ML IV SCH (11:36)
[2018-04-07 18:40] LABS: Basophils # (auto) 0 uL; Eosinophils # (auto) 0 uL; Hematocrit 20.3 % (36.0-46.0); Hemoglobin 7.1 g/dL (12.2-16.2); Lymphocytes # (auto) 0.1 uL; Mean Corpuscular Volume 86.4 fL (80.0-100.0); Monocytes # (auto) 0.1 uL; Monocytes % (auto) 2.8 % (0.0-12.0); Neutrophils # (auto) 3.3 uL; Red Cell Distribution Width 15.5 % (11.8-14.3)
[2018-04-07 18:43] LABS: Eosinophils % (auto) 0.1 % (0.0-7.0); Lymphocytes % (auto) 2.6 % (10.0-50.0); Mean Corpuscular Hgb Conc. 34.8 g/dL (32.0-36.0); Neutrophils % (auto) 94.5 % (37.0-80.0); Nucleated Red Blood Cells % 0.6 %; Platelet Count (auto) 80 10^3/uL (140-450); Red Blood Cells 2.36 10^6/uL (4.0-5.20); White Blood Cell 3.5 10^3/uL (4.4-10.8)
[2018-04-07 18:50] LABS: BUN/Creatinine Ratio 36.5; Calcium 6.4 mg/dL (8.5-10.1)
[2018-04-07 21:05] LABS: INR 2.94 (0.9-1.15); Partial Thromboplastin Time 35.1 sec (23.78-33.04); Prothrombin Time 29.6 sec (9.27-12.13)
[2018-04-07] MEDS: PANTOPRAZOLE 40 MG/10 ML VIAL IV SCH (22:00)
[2018-04-08] VITALS (109 sets, daily range): BP systolic 105–158; BP diastolic 51–91
[2018-04-08] MEDS: IPRATROPIUM BROM 0.5 MG/2.5ML INH SOL NEB SCH ×4 (00:13→18:30)
[2018-04-08] MEDS: ALBUTEROL SULF 2.5 MG/0.5ML(0.5%) NEB SOLN NEB SCH ×4 (00:13→18:30)
[2018-04-08 04:12] LABS: INR 3.76 (0.9-1.15); Partial Thromboplastin Time 39.4 sec (23.78-33.04); Prothrombin Time 37.3 sec (9.27-12.13)
[2018-04-08 04:34] LABS: Potassium 4.8 mmol/L (3.5-5.1); Sodium 148 mmol/L (136-145)
[2018-04-08 04:35] LABS: Alanine Aminotransferase 4310 U/L (13-56); Alkaline Phosphatase 112 U/L (45-117); Anion Gap 14 (5-15); Aspartate Aminotransferase 2478 U/L (15-37); BUN/Creatinine Ratio 35.8; Carbon Dioxide 23 mmol/L (21-32); Chloride 111 mmol/L (98-107); GFR African American 14 mL/min; GFR Non-African American 12 mL/min; Glucose 163 mg/dL (74-106)
[2018-04-08 04:36] LABS: Albumin 2.3 g/dL (3.4-5.0); Bilirubin, Total 0.5 mg/dL (0.2-1.0); Calcium 6.2 mg/dL (8.5-10.1)
[2018-04-08 04:38] LABS: Blood Urea Nitrogen 140 mg/dL (7-18)
[2018-04-08 05:03] LABS: Basophils # (auto) 0 uL; Basophils % (auto) 0.1 % (0.0-2.0); Eosinophils # (auto) 0 uL; Eosinophils % (auto) 0.1 % (0.0-7.0); Hematocrit 26.5 % (36.0-46.0); Hemoglobin 9.1 g/dL (12.2-16.2); Lymphocytes # (auto) 0.1 uL; Lymphocytes % (auto) 2.3 % (10.0-50.0); Mean Corpuscular Hgb Conc. 34.2 g/dL (32.0-36.0); Mean Corpuscular Volume 87.6 fL (80.0-100.0); Monocytes # (auto) 0.1 uL; Monocytes % (auto) 3.4 % (0.0-12.0); Neutrophils # (auto) 4.1 uL; Neutrophils % (auto) 94.1 % (37.0-80.0); Nucleated Red Blood Cells % 0.3 %; Platelet Count (auto) 78 10^3/uL (140-450); Red Blood Cells 3.03 10^6/uL (4.0-5.20); Red Cell Distribution Width 15.3 % (11.8-14.3); White Blood Cell 4.3 10^3/uL (4.4-10.8)
[2018-04-08] MEDS: Nepro With Carbsteady ButterPecan 8oz Carton PO SCH ×3 (08:33→18:00)
[2018-04-08] MEDS: cefTRIAXone 1GM/10ml IVPUSH 10 ML IV SCH (09:50)
[2018-04-08] MEDS: AZITHROMYCIN 500MG/ 250ML 250 ML IV SCH (09:50)
[2018-04-08] MEDS: methylPREDNISolone SOD SUCC 40 MG/ML VL IV SCH ×2 (09:50→21:58)
[2018-04-08] MEDS: FUROSEMIDE 40 MG/4 ML VIAL IV SCH (09:51)
[2018-04-08] MEDS: PANTOPRAZOLE 40 MG/10 ML VIAL IV SCH ×2 (09:52→21:58)
[2018-04-08] MEDS ORDERED: VANCOMYCIN 1GM/250ML 250 ML IV ONE (11:00)
[2018-04-08] MEDS: MIDAZOLAM DRIP 50 mg/50mL 50 ML IV SCH ×3 (11:44→23:37)
[2018-04-08] MEDS ORDERED: D5W 5% 1,000 ML IV ONE (12:45)
[2018-04-08] MEDS: PIPERACILLIN-TAZOB 2.25GM 50 ML IV SCH ×2 (14:52→21:58)
[2018-04-08 20:29] LABS: Hematocrit 22.8 % (36.0-46.0); Hemoglobin 7.9 g/dL (12.2-16.2)
[2018-04-08 20:31] LABS: Mean Corpuscular Hemoglobin 30.3 pg (28.0-32.0); Mean Corpuscular Hgb Conc. 34.8 g/dL (32.0-36.0); Mean Corpuscular Volume 87.1 fL (80.0-100.0); Platelet Count (auto) 60 10^3/uL (140-450); Red Blood Cells 2.62 10^6/uL (4.0-5.20); Red Cell Distribution Width 15.6 % (11.8-14.3)
[2018-04-08 20:38] LABS: Basophils % (manual) 0 (0.0-2.0); Blast Cells 0; Eosinophils % (manual) 0 (0-7); Metamyelocytes % 0; Myelocytes % 0; Promyelocytes % 0; Reactive Lymphocytes 0
[2018-04-08 20:47] LABS: BUN/Creatinine Ratio 34.2; Calcium 6.8 mg/dL (8.5-10.1); Potassium 4.1 mmol/L (3.5-5.1)
[2018-04-08 21:17] LABS: Band Neutrophils % (manual) 8; Lymphocytes % (manual) 6 (10.0-50.0); Monocytes % (manual) 2 (0-12)
[2018-04-08] MEDS: NOREPINEPHRINE 8 MG/250ML KIT 250 ML IV SCH (21:26)
[2018-04-09] VITALS (108 sets, daily range): BP systolic 99–143; BP diastolic 40–80
[2018-04-09] MEDS: ALBUTEROL SULF 2.5 MG/0.5ML(0.5%) NEB SOLN NEB SCH ×4 (00:12→18:15)
[2018-04-09] MEDS: IPRATROPIUM BROM 0.5 MG/2.5ML INH SOL NEB SCH ×4 (00:12→18:15)
[2018-04-09 02:49] LABS: Basophils # (auto) 0 uL; Basophils % (auto) 0.1 % (0.0-2.0); Eosinophils # (auto) 0 uL; Eosinophils % (auto) 0.8 % (0.0-7.0); Lymphocytes # (auto) 0.1 uL; Lymphocytes % (auto) 2.3 % (10.0-50.0); Monocytes # (auto) 0.1 uL; Neutrophils # (auto) 3.6 uL
[2018-04-09 02:51] LABS: Hematocrit 22.2 % (36.0-46.0); Hemoglobin 7.5 g/dL (12.2-16.2); Mean Corpuscular Hemoglobin 29.4 pg (28.0-32.0); Mean Corpuscular Volume 86.5 fL (80.0-100.0); Monocytes % (auto) 3.3 % (0.0-12.0); Neutrophils % (auto) 93.5 % (37.0-80.0); Nucleated Red Blood Cells % 0.8 %; Platelet Count (auto) 51 10^3/uL (140-450); Red Blood Cells 2.57 10^6/uL (4.0-5.20); Red Cell Distribution Width 15.8 % (11.8-14.3); White Blood Cell 3.9 10^3/uL (4.4-10.8)
[2018-04-09 03:04] LABS: INR 2.66 (0.9-1.15); Partial Thromboplastin Time 35.6 sec (23.78-33.04); Prothrombin Time 26.9 sec (9.27-12.13)
[2018-04-09 03:07] LABS: Albumin 2.2 g/dL (3.4-5.0); BUN/Creatinine Ratio 33.8; Calcium 6.5 mg/dL (8.5-10.1)
[2018-04-09 03:16] LABS: Bilirubin, Total 0.4 mg/dL (0.2-1.0); Total Protein 4.6 g/dL (6.4-8.2)
[2018-04-09] MEDS: MIDAZOLAM DRIP 50 mg/50mL 50 ML IV SCH ×4 (04:09→18:49)
[2018-04-09] MEDS: PIPERACILLIN-TAZOB 2.25GM 50 ML IV SCH (05:11)
[2018-04-09] MEDS: MORPHINE SULF INJ 2 MG/ML SYRINGE 1ML IV PRN (05:11)
[2018-04-09] MEDS: Nepro With Carbsteady ButterPecan 8oz Carton PO SCH ×3 (08:00→17:53)
[2018-04-09 08:26] LABS: Platelet Count (auto) 51 10^3/uL (140-450); White Blood Cell 4.2 10^3/uL (4.4-10.8)
[2018-04-09 08:28] LABS: Hematocrit 23.1 % (36.0-46.0); Mean Corpuscular Hemoglobin 29.9 pg (28.0-32.0); Mean Corpuscular Hgb Conc. 34.4 g/dL (32.0-36.0); Mean Corpuscular Volume 86.8 fL (80.0-100.0); Red Blood Cells 2.66 10^6/uL (4.0-5.20)
[2018-04-09 08:35] LABS: Basophils % (manual) 0 (0.0-2.0); Blast Cells 0; Eosinophils % (manual) 0 (0-7); Metamyelocytes % 0; Myelocytes % 0; Promyelocytes % 0; Reactive Lymphocytes 0
[2018-04-09 08:46] LABS: INR 2.49 (0.9-1.15); Prothrombin Time 25.3 sec (9.27-12.13)
[2018-04-09 09:30] LABS: Potassium 3.8 mmol/L (3.5-5.1)
[2018-04-09 09:31] LABS: Albumin 2.2 g/dL (3.4-5.0); Bilirubin, Total 0.5 mg/dL (0.2-1.0); Calcium 6.6 mg/dL (8.5-10.1); Total Protein 4.7 g/dL (6.4-8.2)
[2018-04-09] MEDS: PANTOPRAZOLE 40 MG/10 ML VIAL IV SCH ×2 (10:11→22:03)
[2018-04-09] MEDS: methylPREDNISolone SOD SUCC 40 MG/ML VL IV SCH ×2 (10:11→22:03)
[2018-04-09] MEDS ORDERED: PHYTONADIONE (VIT K)10 MG/ML 1ML VIAL SUBCUT ONE (10:30)
[2018-04-09 10:38] LABS: Band Neutrophils % (manual) 2; Lymphocytes % (manual) 3 (10.0-50.0); Monocytes % (manual) 4 (0-12)
[2018-04-09] MEDS: MEROPENEM 1gm/20ml IVPUSH 20 ML IV SCH ×2 (14:08→23:00)
[2018-04-09] MEDS: NOREPINEPHRINE 8 MG/250ML KIT 250 ML IV SCH (21:26)
[2018-04-10] VITALS (101 sets, daily range): BP systolic 115–153; BP diastolic 56–83
[2018-04-10] MEDS: IPRATROPIUM BROM 0.5 MG/2.5ML INH SOL NEB SCH ×4 (00:06→18:19)
[2018-04-10] MEDS: ALBUTEROL SULF 2.5 MG/0.5ML(0.5%) NEB SOLN NEB SCH ×4 (00:06→18:19)
[2018-04-10] MEDS: MIDAZOLAM DRIP 50 mg/50mL 50 ML IV SCH ×5 (01:13→18:20)
[2018-04-10 04:05] LABS: Platelet Count (auto) 44 10^3/uL (140-450)
[2018-04-10 04:06] LABS: Hematocrit 22.5 % (36.0-46.0); Hemoglobin 7.7 g/dL (12.2-16.2); Mean Corpuscular Hemoglobin 29.7 pg (28.0-32.0); Mean Corpuscular Hgb Conc. 34.4 g/dL (32.0-36.0); Mean Corpuscular Volume 86.5 fL (80.0-100.0); Red Cell Distribution Width 15.6 % (11.8-14.3); White Blood Cell 4.6 10^3/uL (4.4-10.8)
[2018-04-10 04:17] LABS: Basophils % (manual) 0 (0.0-2.0); Blast Cells 0; Eosinophils % (manual) 0 (0-7); Lymphocytes % (manual) 0 (10.0-50.0); Promyelocytes % 0; Reactive Lymphocytes 0
[2018-04-10 04:22] LABS: BUN/Creatinine Ratio 32.4; Calcium 7.1 mg/dL (8.5-10.1); Potassium 3.6 mmol/L (3.5-5.1)
[2018-04-10 04:27] LABS: INR 1.48 (0.9-1.15); Prothrombin Time 15.5 sec (9.27-12.13)
[2018-04-10 05:07] LABS: Band Neutrophils % (manual) 9; Metamyelocytes % 2; Monocytes % (manual) 6 (0-12); Myelocytes % 1
[2018-04-10] MEDS: Nepro With Carbsteady ButterPecan 8oz Carton PO SCH ×3 (08:00→17:29)
[2018-04-10] MEDS ORDERED: EPINEPHrine HCL 1 MG/10 ML SYRG ONE (09:43)
[2018-04-10] MEDS ORDERED: BENZOCAINE (DENTAL) 20 % SPRAY 60ML MT ONE (09:43)
[2018-04-10] MEDS ORDERED: SODIUM CHLORIDE LOCK 0 ML ONE (09:43)
[2018-04-10] MEDS ORDERED: MIDAZOLAM HCL 5 MG/ML-1ML VIAL ONE (09:44)
[2018-04-10] MEDS ORDERED: fentaNYL CITRATE 100 MCG/2 ML VL ONE (09:44)
[2018-04-10] MEDS ORDERED: FLUCONAZOLE 200MG/100ML 100 ML IV SCH (10:00)
[2018-04-10] MEDS: FLUCONAZOLE 200MG/100ML 100 ML IV SCH ×2 (12:33→12:38)
[2018-04-10] MEDS: PANTOPRAZOLE 40 MG/10 ML VIAL IV SCH ×2 (12:33→21:00)
[2018-04-10] MEDS: methylPREDNISolone SOD SUCC 40 MG/ML VL IV SCH ×2 (12:34→21:00)
[2018-04-10] MEDS: MEROPENEM 1gm/20ml IVPUSH 20 ML IV SCH ×2 (12:34→22:31)
[2018-04-10] MEDS: MORPHINE SULF INJ 2 MG/ML SYRINGE 1ML IV PRN (16:46)
[2018-04-10] MEDS: NOREPINEPHRINE 8 MG/250ML KIT 250 ML IV SCH (21:26)
[2018-04-11] VITALS (91 sets, daily range): BP systolic 113–180; BP diastolic 65–94
[2018-04-11] MEDS: ALBUTEROL SULF 2.5 MG/0.5ML(0.5%) NEB SOLN NEB SCH ×4 (00:10→18:23)
[2018-04-11] MEDS: IPRATROPIUM BROM 0.5 MG/2.5ML INH SOL NEB SCH ×4 (00:10→18:23)
[2018-04-11 04:12] LABS: INR 1.23 (0.9-1.15)
[2018-04-11] MEDS: Nepro With Carbsteady ButterPecan 8oz Carton PO SCH ×3 (08:00→18:00)
[2018-04-11 08:57] LABS: Albumin 2.6 g/dL (3.4-5.0); Calcium 8.2 mg/dL (8.5-10.1); Hematocrit 26.7 % (36.0-46.0); Mean Corpuscular Volume 88.6 fL (80.0-100.0); Platelet Count (auto) 44 10^3/uL (140-450); Potassium 3.3 mmol/L (3.5-5.1); Red Blood Cells 3.02 10^6/uL (4.0-5.20)
[2018-04-11 08:59] LABS: Mean Corpuscular Hemoglobin 29.9 pg (28.0-32.0); Mean Corpuscular Hgb Conc. 33.7 g/dL (32.0-36.0); Red Cell Distribution Width 16.1 % (11.8-14.3); White Blood Cell 4.5 10^3/uL (4.4-10.8)
[2018-04-11 09:01] LABS: BUN/Creatinine Ratio 28.7
[2018-04-11 09:06] LABS: Basophils % (manual) 0 (0.0-2.0); Blast Cells 0; Metamyelocytes % 0; Myelocytes % 0; Promyelocytes % 0; Reactive Lymphocytes 0
[2018-04-11 09:10] LABS: Total Protein 5.5 g/dL (6.4-8.2)
[2018-04-11] MEDS: PANTOPRAZOLE 40 MG/10 ML VIAL IV SCH ×2 (10:01→21:33)
[2018-04-11] MEDS: FLUCONAZOLE 200MG/100ML 100 ML IV SCH (10:01)
[2018-04-11] MEDS: methylPREDNISolone SOD SUCC 40 MG/ML VL IV SCH ×2 (10:02→21:33)
[2018-04-11 11:08] LABS: Band Neutrophils % (manual) 5; Eosinophils % (manual) 1 (0-7); Lymphocytes % (manual) 1 (10.0-50.0); Monocytes % (manual) 6 (0-12)
[2018-04-11] MEDS: MEROPENEM 1gm/20ml IVPUSH 20 ML IV SCH ×2 (11:11→22:03)
[2018-04-11] MEDS: POTASSIUM CHL 20MEQ/100ML 100 ML IV SCH ×2 (12:54→15:03)
[2018-04-11] MEDS: MORPHINE SULF INJ 2 MG/ML SYRINGE 1ML IV PRN ×2 (13:13→23:09)
[2018-04-11] MEDS: SOD CHL 0.45% 1,000 ML IV SCH (15:27)
[2018-04-11] MEDS ORDERED: WARF2.5T PO (15:55)
[2018-04-11] MEDS ORDERED: WARF1TAB PO (15:59)
[2018-04-11] MEDS ORDERED: LABETALOL HCL 5 MG/ML ML 20ML VIAL IV ONE (16:15)
[2018-04-11] MEDS: AMPICILLIN INJ 1 GM in SODIUM CHL 0.9% 50 ML IV SCH ×2 (18:46→23:58)
[2018-04-11] MEDS: LABETALOL HCL 5 MG/ML ML 20ML VIAL IV PRN ×2 (19:59→22:01)
[2018-04-11] MEDS: MIDAZOLAM DRIP 50 mg/50mL 50 ML IV SCH (21:25)
[2018-04-11] MEDS: NOREPINEPHRINE 8 MG/250ML KIT 250 ML IV SCH (21:26)
[2018-04-12] VITALS (72 sets, daily range): BP systolic 110–169; BP diastolic 64–94
[2018-04-12] MEDS: ALBUTEROL SULF 2.5 MG/0.5ML(0.5%) NEB SOLN NEB SCH ×4 (00:09→18:29)
[2018-04-12] MEDS: IPRATROPIUM BROM 0.5 MG/2.5ML INH SOL NEB SCH ×4 (00:10→18:29)
[2018-04-12] MEDS: LABETALOL HCL 5 MG/ML ML 20ML VIAL IV PRN (02:07)
[2018-04-12 04:43] LABS: Hemoglobin 8.3 g/dL (12.2-16.2)
[2018-04-12 04:45] LABS: Hematocrit 24.3 % (36.0-46.0); Mean Corpuscular Hemoglobin 30.3 pg (28.0-32.0); Mean Corpuscular Hgb Conc. 34.1 g/dL (32.0-36.0); Mean Corpuscular Volume 88.9 fL (80.0-100.0); Platelet Count (auto) 71 10^3/uL (140-450); Red Blood Cells 2.74 10^6/uL (4.0-5.20); White Blood Cell 4.7 10^3/uL (4.4-10.8)
[2018-04-12 04:56] LABS: INR 1.22 (0.9-1.15); Partial Thromboplastin Time 24.7 sec (23.78-33.04); Prothrombin Time 12.9 sec (9.27-12.13)
[2018-04-12 05:01] LABS: Potassium 3.8 mmol/L (3.5-5.1)
[2018-04-12 05:09] LABS: Albumin 2.4 g/dL (3.4-5.0); Calcium 7.3 mg/dL (8.5-10.1); Total Protein 4.9 g/dL (6.4-8.2)
[2018-04-12 05:14] LABS: Basophils % (manual) 0 (0.0-2.0); Blast Cells 0; Eosinophils % (manual) 0 (0-7); Metamyelocytes % 0; Myelocytes % 0; Promyelocytes % 0; Reactive Lymphocytes 0
[2018-04-12] MEDS: AMPICILLIN INJ 1 GM in SODIUM CHL 0.9% 50 ML IV SCH ×4 (05:36→22:31)
[2018-04-12] MEDS: SOD CHL 0.45% 1,000 ML IV SCH ×3 (05:39→17:06)
[2018-04-12] MEDS: Nepro With Carbsteady ButterPecan 8oz Carton PO SCH ×3 (08:00→18:00)
[2018-04-12 08:21] LABS: Band Neutrophils % (manual) 4; Lymphocytes % (manual) 2 (10.0-50.0); Monocytes % (manual) 4 (0-12)
[2018-04-12] MEDS: methylPREDNISolone SOD SUCC 40 MG/ML VL IV SCH ×2 (10:38→22:31)
[2018-04-12] MEDS: FLUCONAZOLE 200MG/100ML 100 ML IV SCH (10:39)
[2018-04-12] MEDS: PANTOPRAZOLE 40 MG/10 ML VIAL IV SCH ×2 (10:43→22:31)
[2018-04-12] MEDS: MEROPENEM 1gm/20ml IVPUSH 20 ML IV SCH ×2 (10:46→22:46)
[2018-04-12] MEDS: BUMETANIDE (0.25 MG/ML) INJ 10ML IV SCH (12:42)
[2018-04-12] MEDS: hydrALAZINE HCL 20 MG/ML VL IV PRN (12:43)
[2018-04-12] MEDS: fentaNYL Drip 2500mCg/250mlNS 250 ML IV SCH (17:00)
[2018-04-12] MEDS: MIDAZOLAM DRIP 50 mg/50mL 50 ML IV SCH (21:25)
[2018-04-12] MEDS: NOREPINEPHRINE 8 MG/250ML KIT 250 ML IV SCH (21:26)
[2018-04-13] VITALS (105 sets, daily range): BP systolic 116–180; BP diastolic 60–111
[2018-04-13] MEDS: AMPICILLIN INJ 1 GM in SODIUM CHL 0.9% 50 ML IV SCH ×3 (00:07→12:34)
[2018-04-13] MEDS: ALBUTEROL SULF 2.5 MG/0.5ML(0.5%) NEB SOLN NEB SCH ×4 (00:10→18:34)
[2018-04-13] MEDS: IPRATROPIUM BROM 0.5 MG/2.5ML INH SOL NEB SCH ×4 (00:10→18:34)
[2018-04-13 04:24] LABS: Hematocrit 27.9 % (36.0-46.0); Hemoglobin 9.5 g/dL (12.2-16.2); Mean Corpuscular Hemoglobin 30.2 pg (28.0-32.0); Mean Corpuscular Volume 88.9 fL (80.0-100.0); Red Blood Cells 3.14 10^6/uL (4.0-5.20)
[2018-04-13 04:31] LABS: Platelet Count (auto) 40 10^3/uL (140-450)
[2018-04-13 04:32] LABS: Basophils % (manual) 0 (0.0-2.0); Blast Cells 0; Eosinophils % (manual) 0 (0-7); Metamyelocytes % 0; Myelocytes % 0; Promyelocytes % 0; Reactive Lymphocytes 0
[2018-04-13 04:37] LABS: Albumin 2.4 g/dL (3.4-5.0); Calcium 6.8 mg/dL (8.5-10.1); Potassium 3.5 mmol/L (3.5-5.1)
[2018-04-13 04:43] LABS: Bilirubin, Total 1.4 mg/dL (0.2-1.0); Total Protein 5.4 g/dL (6.4-8.2)
[2018-04-13 04:50] LABS: BUN/Creatinine Ratio 39.8
[2018-04-13 04:52] LABS: Band Neutrophils % (manual) 4; Lymphocytes % (manual) 1 (10.0-50.0); Monocytes % (manual) 1 (0-12)
[2018-04-13] MEDS: Nepro With Carbsteady ButterPecan 8oz Carton PO SCH ×3 (08:00→20:00)
[2018-04-13] MEDS: SOD CHL 0.45% 1,000 ML IV SCH ×3 (08:15→23:49)
[2018-04-13] MEDS: methylPREDNISolone SOD SUCC 40 MG/ML VL IV SCH ×2 (09:37→21:29)
[2018-04-13] MEDS: PANTOPRAZOLE 40 MG/10 ML VIAL IV SCH ×2 (09:38→21:29)
[2018-04-13] MEDS: FLUCONAZOLE 200MG/100ML 100 ML IV SCH (09:38)
[2018-04-13] MEDS: BUMETANIDE (0.25 MG/ML) INJ 10ML IV SCH (09:38)
[2018-04-13] MEDS: hydrALAZINE HCL 20 MG/ML VL IV PRN (09:39)
[2018-04-13] MEDS: MEROPENEM 1gm/20ml IVPUSH 20 ML IV SCH ×2 (11:21→23:17)
[2018-04-13] MEDS: MORPHINE SULF INJ 2 MG/ML SYRINGE 1ML IV PRN ×2 (11:22→23:55)
[2018-04-13] MEDS ORDERED: D5W 5% 1,000 ML IV SCH (12:00)
[2018-04-13] MEDS: fentaNYL Drip 2500mCg/250mlNS 250 ML IV SCH (20:00)
[2018-04-13] MEDS ORDERED: TPN PER PHARMACY 0 ML IV SCH (20:15)
[2018-04-13] MEDS ORDERED: AMINO ACID INFUSION IN D10W 1,000 ML IV NR (20:30)
[2018-04-13] MEDS: MIDAZOLAM DRIP 50 mg/50mL 50 ML IV SCH (21:25)
[2018-04-13] MEDS: NOREPINEPHRINE 8 MG/250ML KIT 250 ML IV SCH (21:26)
[2018-04-13] MEDS: LABETALOL HCL 5 MG/ML ML 20ML VIAL IV PRN (21:28)
[2018-04-13] MEDS ORDERED: DEXTROSE (50%) 50ML SYRG IV SCH (22:30)
[2018-04-14] VITALS (108 sets, daily range): BP systolic 74–202; BP diastolic 34–111
[2018-04-14] MEDS: ALBUTEROL SULF 2.5 MG/0.5ML(0.5%) NEB SOLN NEB SCH ×5 (00:02→23:43)
[2018-04-14] MEDS: IPRATROPIUM BROM 0.5 MG/2.5ML INH SOL NEB SCH ×5 (00:02→23:43)
[2018-04-14] MEDS: ACCU-CHEK COMFORT CURVE STRIP VI SCH ×5 (00:07→23:57)
[2018-04-14] MEDS: InsuLIN REG 1unit/0.01ml Soln (100units/ml) SC SCH ×4 (00:22→18:03)
[2018-04-14] MEDS: LABETALOL HCL 5 MG/ML ML 20ML VIAL IV PRN ×2 (00:29→05:54)
[2018-04-14] MEDS: AMPICILLIN INJ 1 GM in SODIUM CHL 0.9% 50 ML IV SCH ×5 (00:39→23:57)
[2018-04-14 04:04] LABS: Hemoglobin 8.3 g/dL (12.2-16.2); Platelet Count (auto) 26 10^3/uL (140-450); White Blood Cell 8.1 10^3/uL (4.4-10.8)
[2018-04-14 04:06] LABS: Mean Corpuscular Hemoglobin 29.7 pg (28.0-32.0); Mean Corpuscular Hgb Conc. 33.3 g/dL (32.0-36.0); Mean Corpuscular Volume 89.3 fL (80.0-100.0); Red Cell Distribution Width 16.4 % (11.8-14.3)
[2018-04-14 04:21] LABS: Basophils % (manual) 0 (0.0-2.0); Blast Cells 0; Eosinophils % (manual) 0 (0-7); Metamyelocytes % 0; Myelocytes % 0; Promyelocytes % 0; Reactive Lymphocytes 0
[2018-04-14 04:36] LABS: Bilirubin, Total 1.3 mg/dL (0.2-1.0); Calcium 6.3 mg/dL (8.5-10.1); Potassium 3.3 mmol/L (3.5-5.1); Total Protein 4.8 g/dL (6.4-8.2)
[2018-04-14 04:38] LABS: Band Neutrophils % (manual) 5; Lymphocytes % (manual) 1 (10.0-50.0); Monocytes % (manual) 1 (0-12)
[2018-04-14 04:43] LABS: BUN/Creatinine Ratio 41.9
[2018-04-14 04:49] LABS: Phosphorus 6.3 mg/dL (2.5-4.90); Pre Albumin 17.9 mg/dL (20.0-40.0)
[2018-04-14] MEDS: Nepro With Carbsteady ButterPecan 8oz Carton PO SCH ×3 (07:42→17:35)
[2018-04-14 08:08] LABS: Immunoglobulin G, Serum 402 mg/dL (700-1600)
[2018-04-14] MEDS ORDERED: POTASSIUM CHL 20MEQ/100ML 100 ML IV ONE ×2 (09:45→12:30)
[2018-04-14] MEDS ORDERED: DAPTOmycin 0 MG in SODIUM CHL 0.9% 50 ML IV SCH ×2 (10:00)
[2018-04-14] MEDS: FLUCONAZOLE 200MG/100ML 100 ML IV SCH (10:45)
[2018-04-14] MEDS: PANTOPRAZOLE 40 MG/10 ML VIAL IV SCH ×2 (10:45→22:25)
[2018-04-14] MEDS: methylPREDNISolone SOD SUCC 40 MG/ML VL IV SCH (10:45)
[2018-04-14] MEDS ORDERED: CALCIUM GLUC 4.65meq/50ml D5AE 50 ML IV ONE (12:00)
[2018-04-14] MEDS: MEROPENEM 1gm/20ml IVPUSH 20 ML IV SCH ×2 (12:23→23:58)
[2018-04-14] MEDS: hydrALAZINE HCL 20 MG/ML VL IV PRN (12:24)
[2018-04-14] MEDS ORDERED: METOPROLOL TARTRATE 1MG/1ML-5ML VIAL IV ONE (12:45)
[2018-04-14] MEDS: MORPHINE SULF INJ 2 MG/ML SYRINGE 1ML IV PRN (14:35)
[2018-04-14] MEDS: DEXMEDETOMIDINE HCL 400 MCG in D5W 5% 96 ML IV SCH (15:49)
[2018-04-14] MEDS: IPRATROPIUM BROM 0.5 MG/2.5ML INH SOL NEB PRN (16:02)
[2018-04-14] MEDS: ALBUTEROL SULF 2.5 MG/0.5ML(0.5%) NEB SOLN NEB PRN (16:02)
[2018-04-14] MEDS ORDERED: SOD CHL 0.45% WITH 20MEQ KCL 1,000 ML IV ONE (16:45)
[2018-04-14] MEDS: fentaNYL Drip 2500mCg/250mlNS 250 ML IV SCH (17:34)
[2018-04-14] MEDS ORDERED: TPN PER PHARMACY IV NR ×6 (20:00)
[2018-04-14] MEDS: MIDAZOLAM DRIP 50 mg/50mL 50 ML IV SCH (21:25)
[2018-04-14] MEDS: NOREPINEPHRINE 8 MG/250ML KIT 250 ML IV SCH (21:26)
[2018-04-14] MEDS ORDERED: ACETYLCYSTEINE 10 %(100MG/ML) SOL 4ML NEB SCH ×2 (22:00)
[2018-04-14] MEDS: methylPREDNISolone SOD SUCC 125 MG/2 ML VL IV SCH (22:25)
[2018-04-14] MEDS: ACETYLCYSTEINE 10 %(100MG/ML) SOL 4ML NEB SCH (23:44)
[2018-04-15] VITALS (107 sets, daily range): BP systolic 83–187; BP diastolic 41–126
[2018-04-15] MEDS: InsuLIN REG 1unit/0.01ml Soln (100units/ml) SC SCH ×4 (00:25→18:15)
[2018-04-15] MEDS: SOD CHL 0.45% 1,000 ML IV SCH ×2 (02:00→14:00)
[2018-04-15 04:31] LABS: Hematocrit 25.4 % (36.0-46.0); Platelet Count (auto) 27 10^3/uL (140-450)
[2018-04-15 04:34] LABS: Hemoglobin 8.6 g/dL (12.2-16.2); Mean Corpuscular Hemoglobin 30.3 pg (28.0-32.0); Mean Corpuscular Volume 89.2 fL (80.0-100.0); Red Blood Cells 2.85 10^6/uL (4.0-5.20); Red Cell Distribution Width 16.4 % (11.8-14.3); White Blood Cell 5.9 10^3/uL (4.4-10.8)
[2018-04-15 04:40] LABS: Band Neutrophils % (manual) 0; Basophils % (manual) 0 (0.0-2.0); Blast Cells 0; Eosinophils % (manual) 0 (0-7); Metamyelocytes % 0; Myelocytes % 0; Promyelocytes % 0; Reactive Lymphocytes 0
[2018-04-15 04:56] LABS: BUN/Creatinine Ratio 43.1; Bilirubin, Total 1.1 mg/dL (0.2-1.0); Calcium 6.9 mg/dL (8.5-10.1); Magnesium 2.3 mg/dL (1.6-2.6); Potassium 4.5 mmol/L (3.5-5.1)
[2018-04-15 05:13] LABS: Lymphocytes % (manual) 3 (10.0-50.0); Monocytes % (manual) 1 (0-12)
[2018-04-15] MEDS: ACCU-CHEK COMFORT CURVE STRIP VI SCH ×3 (05:29→18:15)
[2018-04-15] MEDS: AMPICILLIN INJ 1 GM in SODIUM CHL 0.9% 50 ML IV SCH ×3 (05:29→17:52)
[2018-04-15] MEDS: ALBUTEROL SULF 2.5 MG/0.5ML(0.5%) NEB SOLN NEB SCH ×3 (06:05→18:16)
[2018-04-15] MEDS: IPRATROPIUM BROM 0.5 MG/2.5ML INH SOL NEB SCH ×3 (06:06→18:16)
[2018-04-15] MEDS: ACETYLCYSTEINE 10 %(100MG/ML) SOL 4ML NEB SCH ×3 (06:06→18:16)
[2018-04-15] MEDS: Nepro With Carbsteady ButterPecan 8oz Carton PO SCH ×3 (08:00→18:00)
[2018-04-15] MEDS: methylPREDNISolone SOD SUCC 125 MG/2 ML VL IV SCH (10:02)
[2018-04-15] MEDS: PANTOPRAZOLE 40 MG/10 ML VIAL IV SCH ×2 (10:02→22:01)
[2018-04-15] MEDS: FLUCONAZOLE 200MG/100ML 100 ML IV SCH (10:02)
[2018-04-15] MEDS: DEXMEDETOMIDINE HCL 400 MCG in D5W 5% 96 ML IV SCH (10:21)
[2018-04-15] MEDS: MEROPENEM 1gm/20ml IVPUSH 20 ML IV SCH ×2 (11:46→22:19)
[2018-04-15] MEDS: MORPHINE SULF INJ 2 MG/ML SYRINGE 1ML IV PRN (17:53)
[2018-04-15] MEDS ORDERED: TPN PER PHARMACY IV NR ×6 (20:00)
[2018-04-15] MEDS: fentaNYL Drip 2500mCg/250mlNS 250 ML IV SCH (20:06)
[2018-04-15] MEDS: MIDAZOLAM DRIP 50 mg/50mL 50 ML IV SCH (21:25)
[2018-04-15] MEDS: NOREPINEPHRINE 8 MG/250ML KIT 250 ML IV SCH (21:26)
[2018-04-15] MEDS: methylPREDNISolone SOD SUCC 40 MG/ML VL IV SCH (22:01)
[2018-04-15] MEDS ORDERED: PROPOFOL 100 ML IV ONE (22:45)
[2018-04-16] VITALS (106 sets, daily range): BP systolic 77–187; BP diastolic 38–122
[2018-04-16] MEDS: ACCU-CHEK COMFORT CURVE STRIP VI SCH ×3 (00:18→18:03)
[2018-04-16] MEDS: InsuLIN REG 1unit/0.01ml Soln (100units/ml) SC SCH ×4 (00:18→18:00)
[2018-04-16] MEDS: ACETYLCYSTEINE 10 %(100MG/ML) SOL 4ML NEB SCH ×4 (00:19→18:41)
[2018-04-16] MEDS: ALBUTEROL SULF 2.5 MG/0.5ML(0.5%) NEB SOLN NEB SCH ×4 (00:19→18:40)
[2018-04-16] MEDS: IPRATROPIUM BROM 0.5 MG/2.5ML INH SOL NEB SCH ×4 (00:19→18:41)
[2018-04-16] MEDS: AMPICILLIN INJ 1 GM in SODIUM CHL 0.9% 50 ML IV SCH ×4 (00:36→17:56)
[2018-04-16] MEDS: SOD CHL 0.45% 1,000 ML IV SCH ×2 (01:24→17:30)
[2018-04-16 04:16] LABS: White Blood Cell 4.3 10^3/uL (4.4-10.8)
[2018-04-16 04:19] LABS: Hemoglobin 8.4 g/dL (12.2-16.2); Mean Corpuscular Hgb Conc. 33.7 g/dL (32.0-36.0); Platelet Count (auto) 29 10^3/uL (140-450); Red Blood Cells 2.81 10^6/uL (4.0-5.20); Red Cell Distribution Width 16.1 % (11.8-14.3)
[2018-04-16 04:24] LABS: Basophils % (manual) 0 (0.0-2.0); Blast Cells 0; Eosinophils % (manual) 0 (0-7); Metamyelocytes % 0; Myelocytes % 0; Promyelocytes % 0; Reactive Lymphocytes 0
[2018-04-16 04:37] LABS: Albumin 1.7 g/dL (3.4-5.0); BUN/Creatinine Ratio 47.7; Bilirubin, Total 0.9 mg/dL (0.2-1.0); Calcium 7.3 mg/dL (8.5-10.1); Magnesium 2.2 mg/dL (1.6-2.6); Phosphorus 4.9 mg/dL (2.5-4.90); Potassium 4.5 mmol/L (3.5-5.1); Total Protein 4.7 g/dL (6.4-8.2)
[2018-04-16 04:52] LABS: Band Neutrophils % (manual) 4; Lymphocytes % (manual) 5 (10.0-50.0); Monocytes % (manual) 3 (0-12)
[2018-04-16] MEDS: Nepro With Carbsteady ButterPecan 8oz Carton PO SCH ×3 (08:00→18:00)
[2018-04-16] MEDS ORDERED: SODIUM CHLORIDE LOCK 20 ML ONE (08:31)
[2018-04-16] MEDS ORDERED: LIDOCAINE 2% (LOCAL ANESTH.) PF 5ml SDV ONE (08:31)
[2018-04-16] MEDS ORDERED: EPINEPHrine HCL 1 MG/1 ML AMP ONE (08:32)
[2018-04-16] MEDS ORDERED: SODIUM CHLORIDE LOCK 10 ML ONE (08:35)
[2018-04-16] MEDS ORDERED: MIDAZOLAM HCL 5 MG/ML-1ML VIAL ONE (08:36)
[2018-04-16] MEDS ORDERED: GLYCOPYRROLATE 0.2 MG/ML 1ML VIAL ONE (08:36)
[2018-04-16] MEDS ORDERED: ROCURONIUM 10MG/ML 10ML VIAL IV ONE (09:42)
[2018-04-16] MEDS ORDERED: ETOMIDATE (2MG/ML) 20ML VIAL IV ONE (09:42)
[2018-04-16] MEDS: NOREPINEPHRINE 8 MG/250ML KIT 250 ML IV SCH (09:55)
[2018-04-16] MEDS: FLUCONAZOLE 200MG/100ML 100 ML IV SCH (10:32)
[2018-04-16] MEDS: methylPREDNISolone SOD SUCC 40 MG/ML VL IV SCH ×2 (10:32→21:06)
[2018-04-16] MEDS: PANTOPRAZOLE 40 MG/10 ML VIAL IV SCH ×2 (10:32→21:05)
[2018-04-16] MEDS: MEROPENEM 1gm/20ml IVPUSH 20 ML IV SCH ×2 (11:40→22:50)
[2018-04-16] MEDS: PROPOFOL 100 ML IV SCH ×2 (12:00→21:03)
[2018-04-16] MEDS: fentaNYL Drip 2500mCg/250mlNS 250 ML IV SCH ×2 (12:42→23:39)
[2018-04-16] MEDS: DEXMEDETOMIDINE HCL 400 MCG in D5W 5% 96 ML IV SCH (15:30)
[2018-04-16] MEDS ORDERED: TPN PER PHARMACY IV NR ×6 (20:00)
[2018-04-16] MEDS: MIDAZOLAM DRIP 50 mg/50mL 50 ML IV SCH (21:25)
[2018-04-17] VITALS (107 sets, daily range): BP systolic 83–188; BP diastolic 37–90
[2018-04-17] MEDS: ACETYLCYSTEINE 10 %(100MG/ML) SOL 4ML NEB SCH ×4 (00:28→18:35)
[2018-04-17] MEDS: IPRATROPIUM BROM 0.5 MG/2.5ML INH SOL NEB SCH ×4 (00:28→18:35)
[2018-04-17] MEDS: ALBUTEROL SULF 2.5 MG/0.5ML(0.5%) NEB SOLN NEB SCH ×4 (00:28→18:35)
[2018-04-17 04:23] LABS: Albumin 1.4 g/dL (3.4-5.0); BUN/Creatinine Ratio 45.8; Calcium 7.9 mg/dL (8.5-10.1); Magnesium 2.1 mg/dL (1.6-2.6); Phosphorus 5.7 mg/dL (2.5-4.90); Potassium 4.8 mmol/L (3.5-5.1); Total Protein 4.6 g/dL (6.4-8.2)
[2018-04-17] MEDS: AMPICILLIN INJ 1 GM in SODIUM CHL 0.9% 50 ML IV SCH ×5 (06:05→18:08)
[2018-04-17] MEDS: ACCU-CHEK COMFORT CURVE STRIP VI SCH ×4 (06:07→18:00)
[2018-04-17] MEDS: InsuLIN REG 1unit/0.01ml Soln (100units/ml) SC SCH ×4 (06:07→18:10)
[2018-04-17 07:26] LABS: Hemoglobin 8.1 g/dL (12.2-16.2); White Blood Cell 4.6 10^3/uL (4.4-10.8)
[2018-04-17 07:27] LABS: Hematocrit 24.9 % (36.0-46.0); Mean Corpuscular Hemoglobin 29.3 pg (28.0-32.0); Mean Corpuscular Hgb Conc. 32.7 g/dL (32.0-36.0); Mean Corpuscular Volume 89.6 fL (80.0-100.0); Platelet Count (auto) 36 10^3/uL (140-450); Red Blood Cells 2.78 10^6/uL (4.0-5.20)
[2018-04-17 07:33] LABS: Basophils % (manual) 0 (0.0-2.0); Blast Cells 0; Eosinophils % (manual) 0 (0-7); Myelocytes % 0; Promyelocytes % 0; Reactive Lymphocytes 0
[2018-04-17] MEDS: PROPOFOL 100 ML IV SCH ×2 (07:49→15:41)
[2018-04-17 08:22] LABS: Band Neutrophils % (manual) 18; Lymphocytes % (manual) 2 (10.0-50.0); Metamyelocytes % 1; Monocytes % (manual) 2 (0-12)
[2018-04-17] MEDS: PANTOPRAZOLE 40 MG/10 ML VIAL IV SCH ×2 (10:33→22:10)
[2018-04-17] MEDS: FLUCONAZOLE 200MG/100ML 100 ML IV SCH (10:33)
[2018-04-17] MEDS: MEROPENEM 1gm/20ml IVPUSH 20 ML IV SCH (10:34)
[2018-04-17] MEDS: methylPREDNISolone SOD SUCC 40 MG/ML VL IV SCH ×2 (10:34→22:10)
[2018-04-17] MEDS: fentaNYL Drip 2500mCg/250mlNS 250 ML IV SCH ×2 (10:52→22:09)
[2018-04-17] MEDS: SOD CHL 0.45% 1,000 ML IV SCH (17:08)
[2018-04-17] MEDS ORDERED: TPN PER PHARMACY IV NR ×6 (20:00)
[2018-04-17] MEDS: MIDAZOLAM DRIP 50 mg/50mL 50 ML IV SCH (21:25)
[2018-04-17] MEDS: NOREPINEPHRINE 8 MG/250ML KIT 250 ML IV SCH (21:26)
[2018-04-18] VITALS (102 sets, daily range): BP systolic 81–136; BP diastolic 37–82
[2018-04-18] MEDS: ALBUTEROL SULF 2.5 MG/0.5ML(0.5%) NEB SOLN NEB SCH ×4 (00:18→18:54)
[2018-04-18] MEDS: IPRATROPIUM BROM 0.5 MG/2.5ML INH SOL NEB SCH ×4 (00:18→18:54)
[2018-04-18] MEDS: ACETYLCYSTEINE 10 %(100MG/ML) SOL 4ML NEB SCH ×3 (00:22→18:54)
[2018-04-18] MEDS: InsuLIN REG 1unit/0.01ml Soln (100units/ml) SC SCH ×5 (01:00→23:21)
[2018-04-18] MEDS: AMPICILLIN INJ 1 GM in SODIUM CHL 0.9% 50 ML IV SCH ×5 (01:00→23:21)
[2018-04-18] MEDS: MEROPENEM 1gm/20ml IVPUSH 20 ML IV SCH ×2 (01:00→12:47)
[2018-04-18] MEDS: ACCU-CHEK COMFORT CURVE STRIP VI SCH ×5 (01:00→23:21)
[2018-04-18] MEDS: PROPOFOL 100 ML IV SCH ×2 (02:00→09:27)
[2018-04-18 04:58] LABS: Albumin 1.3 g/dL (3.4-5.0); BUN/Creatinine Ratio 46.3; Bilirubin, Total 0.9 mg/dL (0.2-1.0); Phosphorus 5.8 mg/dL (2.5-4.90); Potassium 5.2 mmol/L (3.5-5.1); Total Protein 4.5 g/dL (6.4-8.2)
[2018-04-18] MEDS: fentaNYL Drip 2500mCg/250mlNS 250 ML IV SCH ×2 (10:29→21:34)
[2018-04-18] MEDS: methylPREDNISolone SOD SUCC 40 MG/ML VL IV SCH ×2 (10:31→21:34)
[2018-04-18] MEDS: PANTOPRAZOLE 40 MG/10 ML VIAL IV SCH ×2 (10:31→21:34)
[2018-04-18] MEDS: FLUCONAZOLE 200MG/100ML 100 ML IV SCH (10:31)
[2018-04-18] MEDS: SOD CHL 0.45% 1,000 ML IV SCH (14:00)
[2018-04-18] MEDS ORDERED: PPN PER PHARMACY IV NR ×5 (20:00)
[2018-04-18] MEDS: MIDAZOLAM DRIP 50 mg/50mL 50 ML IV SCH (21:25)
[2018-04-18] MEDS: ALBUTEROL SULF 2.5 MG/0.5ML(0.5%) NEB SOLN NEB PRN (22:32)
[2018-04-18] MEDS: IPRATROPIUM BROM 0.5 MG/2.5ML INH SOL NEB PRN (22:32)
[2018-04-18] MEDS: MEROPENEM 1GM IVPB 100 ML IV SCH (22:46)
[2018-04-19] VITALS (86 sets, daily range): BP systolic 62–141; BP diastolic 38–84
[2018-04-19] MEDS: ALBUTEROL SULF 2.5 MG/0.5ML(0.5%) NEB SOLN NEB SCH ×4 (00:48→19:03)
[2018-04-19] MEDS: IPRATROPIUM BROM 0.5 MG/2.5ML INH SOL NEB SCH ×4 (00:48→19:03)
[2018-04-19] MEDS: ACETYLCYSTEINE 10 %(100MG/ML) SOL 4ML NEB SCH ×4 (00:49→19:03)
[2018-04-19 03:10] LABS: Hemoglobin 8.3 g/dL (12.2-16.2)
[2018-04-19 03:11] LABS: Hematocrit 25.8 % (36.0-46.0); Mean Corpuscular Hemoglobin 28.7 pg (28.0-32.0); Mean Corpuscular Volume 89.7 fL (80.0-100.0); Red Blood Cells 2.88 10^6/uL (4.0-5.20); Red Cell Distribution Width 16.9 % (11.8-14.3)
[2018-04-19 03:21] LABS: Platelet Count (auto) 31 10^3/uL (140-450)
[2018-04-19 03:22] LABS: White Blood Cell 1.9 10^3/uL (4.4-10.8)
[2018-04-19 03:23] LABS: Basophils % (manual) 0 (0.0-2.0); Blast Cells 0; Eosinophils % (manual) 0 (0-7); Myelocytes % 0; Promyelocytes % 0; Reactive Lymphocytes 0
[2018-04-19 03:30] LABS: Magnesium 1.8 mg/dL (1.6-2.6); Phosphorus 7.1 mg/dL (2.5-4.90); Pre Albumin 6.3 mg/dL (20.0-40.0)
[2018-04-19 04:14] LABS: Albumin 1.1 g/dL (3.4-5.0); BUN/Creatinine Ratio 44.5; Bilirubin, Total 0.9 mg/dL (0.2-1.0); Calcium 8.1 mg/dL (8.5-10.1); Total Protein 4.6 g/dL (6.4-8.2)
[2018-04-19 04:26] LABS: Potassium 5.6 mmol/L (3.5-5.1)
[2018-04-19] MEDS ORDERED: SODIUM BICARBONATE 8.4% INJ 50ML SYRINGE ONE (04:40)
[2018-04-19] MEDS ORDERED: SODIUM BICARBONATE 8.4 % INJ 50ML VIAL IV ONE ×4 (04:41→10:15)
[2018-04-19] MEDS: ACCU-CHEK COMFORT CURVE STRIP VI SCH ×4 (05:01→23:34)
[2018-04-19] MEDS: InsuLIN REG 1unit/0.01ml Soln (100units/ml) SC SCH ×4 (05:01→23:34)
[2018-04-19] MEDS: SOD CHL 0.45% 1,000 ML IV SCH (05:01)
[2018-04-19] MEDS: AMPICILLIN INJ 1 GM in SODIUM CHL 0.9% 50 ML IV SCH ×4 (05:01→23:38)
[2018-04-19 05:03] LABS: Band Neutrophils % (manual) 12; Lymphocytes % (manual) 7 (10.0-50.0); Metamyelocytes % 3; Monocytes % (manual) 1 (0-12)
[2018-04-19] MEDS: NOREPINEPHRINE 8 MG/250ML KIT 250 ML IV SCH ×2 (06:08→10:30)
[2018-04-19] MEDS ORDERED: PHENYLEPHRINE INJ 20 MG in SODIUM CHL 0.9% 250 ML IV SCH (08:06)
[2018-04-19] MEDS ORDERED: InsuLIN REG 1unit/0.01ml Soln (100units/ml) IV ONE (08:15)
[2018-04-19] MEDS ORDERED: DEXTROSE (50%) 50ML SYRG IV ONE (08:15)
[2018-04-19] MEDS ORDERED: CALCIUM GLUC 4.65meq/50ml D5AE 50 ML IV ONE (08:15)
[2018-04-19] MEDS: fentaNYL Drip 2500mCg/250mlNS 250 ML IV SCH ×2 (08:55→21:09)
[2018-04-19] MEDS: methylPREDNISolone SOD SUCC 40 MG/ML VL IV SCH ×2 (10:01→21:09)
[2018-04-19] MEDS: PANTOPRAZOLE 40 MG/10 ML VIAL IV SCH ×2 (10:02→21:09)
[2018-04-19] MEDS: FLUCONAZOLE 200MG/100ML 100 ML IV SCH (10:13)
[2018-04-19] MEDS ORDERED: SODIUM CHLORIDE 0.9% 1,000 ML IV ONE (10:15)
[2018-04-19] MEDS: ALBUMIN 25% 100 ML IV SCH ×2 (11:56→13:23)
[2018-04-19] MEDS ORDERED: PHENYLEPHRINE INJ 80 MG in SODIUM CHL 0.9% 250 ML IV SCH (12:00)
[2018-04-19] MEDS: SODIUM BICARBONATE 50ML VIAL 150 ML in D5W 5% 1,000 ML IV SCH ×2 (12:07→21:45)
[2018-04-19] MEDS ORDERED: PHENYLEPHRINE IV 250 ML IV ONE (12:21)
[2018-04-19] MEDS ORDERED: PHENYLEPHRINE HCL 10 MG/ML VL ONE (12:22)
[2018-04-19] MEDS: MEROPENEM 1GM IVPB 100 ML IV SCH ×2 (15:17→22:42)
[2018-04-19] MEDS: PROPOFOL 100 ML IV SCH (15:33)
[2018-04-19 18:13] LABS: Calcium 7.8 mg/dL (8.5-10.1); Potassium 5.1 mmol/L (3.5-5.1)
[2018-04-19] MEDS ORDERED: SODIUM ACETATE IV NR ×12 (20:00)
[2018-04-19] MEDS ORDERED: MULTIPLE VITAMIN IV NR ×12 (20:00)
[2018-04-19] MEDS ORDERED: [UNRECOGNIZED DRUG - OTHER] IV NR ×12 (20:00)
[2018-04-19] MEDS ORDERED: MAGNESIUM SULF IV NR ×12 (20:00)
[2018-04-19 20:45] LABS: Hematocrit 18.7 % (36.0-46.0)
[2018-04-19 20:49] LABS: Hemoglobin 6.2 g/dL (12.2-16.2)
[2018-04-20] MEDS: IPRATROPIUM BROM 0.5 MG/2.5ML INH SOL NEB SCH (00:15)
[2018-04-20] MEDS: ALBUTEROL SULF 2.5 MG/0.5ML(0.5%) NEB SOLN NEB SCH (00:15)
[2018-04-20] MEDS: ACETYLCYSTEINE 10 %(100MG/ML) SOL 4ML NEB SCH (00:16)
== END 2018-04-20 04:48 | disposition expired | DRG 853 ==
LOC: ER 17:22 → EDBD 17:22 → TELE 17:23 → TELE-WESTW 23:47 → ICU WEST 04-06 21:40
PROVIDERS: ADMIT Nurse Practitioner Family; ATTEND Family Medicine
PROC: 5A1955Z Respiratory Ventilation, Greater than 96 Consecutive Hours (ICD-10-PCS; principal; 2018-04-06)
PROC: 0BH17EZ Insertion of Endotracheal Airway into Trachea, Via Natural or Artificial Opening (ICD-10-PCS; 2018-04-06)
PROC: 5A09357 Assistance with Respiratory Ventilation, Less than 24 Consecutive Hours, Continuous Positive Airway Pressure (ICD-10-PCS; 2018-04-06)
PROC: 30233L1 Transfusion of Nonautologous Fresh Plasma into Peripheral Vein, Percutaneous Approach (ICD-10-PCS; 2018-04-07)
PROC: 30233N1 Transfusion of Nonautologous Red Blood Cells into Peripheral Vein, Percutaneous Approach (ICD-10-PCS; 2018-04-07)
PROC: 30233K1 Transfusion of Nonautologous Frozen Plasma into Peripheral Vein, Percutaneous Approach (ICD-10-PCS; 2018-04-07)
PROC: 02HV33Z Insertion of Infusion Device into Superior Vena Cava, Percutaneous Approach (ICD-10-PCS; 2018-04-07)
PROC: 0DJ08ZZ Inspection of Upper Intestinal Tract, Via Natural or Artificial Opening Endoscopic (ICD-10-PCS; 2018-04-10)
PROC: 30233R1 Transfusion of Nonautologous Platelets into Peripheral Vein, Percutaneous Approach (ICD-10-PCS; 2018-04-11)
PROC: 0B9F8ZX Drainage of Right Lower Lung Lobe, Via Natural or Artificial Opening Endoscopic, Diagnostic (ICD-10-PCS; 2018-04-16)
PROC: 0B9G8ZX Drainage of Left Upper Lung Lobe, Via Natural or Artificial Opening Endoscopic, Diagnostic (ICD-10-PCS; 2018-04-16)
PROC: 0B9D8ZX Drainage of Right Middle Lung Lobe, Via Natural or Artificial Opening Endoscopic, Diagnostic (ICD-10-PCS; 2018-04-16)
PROC: 0W993ZZ Drainage of Right Pleural Cavity, Percutaneous Approach (ICD-10-PCS; 2018-04-16)
PROC: 0BD58ZX Extraction of Right Middle Lobe Bronchus, Via Natural or Artificial Opening Endoscopic, Diagnostic (ICD-10-PCS; 2018-04-16)
DX: A41.9 Sepsis, unspecified organism (principal); R65.21 Severe sepsis with septic shock; J15.0 Pneumonia due to Klebsiella pneumoniae; K72.00 Acute and subacute hepatic failure without coma; E43 Unspecified severe protein-calorie malnutrition; J96.21 Acute and chronic respiratory failure with hypoxia; J15.1 Pneumonia due to Pseudomonas; N39.0 Urinary tract infection, site not specified; D68.9 Coagulation defect, unspecified; N18.4 Chronic kidney disease, stage 4 (severe); E87.0 Hyperosmolality and hypernatremia; D62 Acute posthemorrhagic anemia; I47.2 Ventricular tachycardia; J44.0 Chronic obstructive pulmonary disease with (acute) lower respiratory infection; J98.11 Atelectasis; M31.31 Wegener's granulomatosis with renal involvement; N17.9 Acute kidney failure, unspecified; Z99.11 Dependence on respirator [ventilator] status; K92.2 Gastrointestinal hemorrhage, unspecified; E87.5 Hyperkalemia; K25.9 Gastric ulcer, unspecified as acute or chronic, without hemorrhage or perforation; E87.6 Hypokalemia; I28.8 Other diseases of pulmonary vessels; I77.6 Arteritis, unspecified; D63.8 Anemia in other chronic diseases classified elsewhere; D69.6 Thrombocytopenia, unspecified; E86.1 Hypovolemia; I10 Essential (primary) hypertension; I12.9 Hypertensive chronic kidney disease with stage 1 through stage 4 chronic kidney disease, or unspecified chronic kidney disease; I25.10 Atherosclerotic heart disease of native coronary artery without angina pectoris; I48.0 Paroxysmal atrial fibrillation; I49.1 Atrial premature depolarization; K21.9 Gastro-esophageal reflux disease without esophagitis; M54.9 Dorsalgia, unspecified; K52.9 Noninfective gastroenteritis and colitis, unspecified; T45.515A Adverse effect of anticoagulants, initial encounter; Z66 Do not resuscitate; Z79.01 Long term (current) use of anticoagulants; Z79.891 Long term (current) use of opiate analgesic; Z80.3 Family history of malignant neoplasm of breast; Z82.49 Family history of ischemic heart disease and other diseases of the circulatory system; Z86.711 Personal history of pulmonary embolism; Z86.74 Personal history of sudden cardiac arrest; Z90.710 Acquired absence of both cervix and uterus; Z68.26 Body mass index [BMI] 26.0-26.9, adult; Z88.5 Allergy status to narcotic agent; Z88.2 Allergy status to sulfonamides
CPT/HCPCS: 31624; 32555; 36415; 36600; 43235; 71045; 71250; 74176; 76604; 76705; 76942; 80048; 80053; 80202; 81001; 82040; 82550; 82570; 82784; 82805; 82962; 83520; 83540; 83550; 83605; 83735; 83880; 84100; 84156; 84166; 84300; 84443; 84478; 84484; 84550; 85007; 85014; 85018; 85025; 85027; 85610; 85652; 85730; 86256; 86850; 86900; 86901; 86920; 87040; 87045; 87070; 87077; 87081; 87086; 87088; 87186; 87205; 87493; 87899; 93005; 93306; 94002; 94003; 94640; 94660; 94761; 96361; 96374; 96375; 96379; A6257; C9113; J0171; J0330; J0610; J0696; J1450; J1815; J2001; J2185; J2250; J2405; J2543; J2704; J3430; J3480; J3490; J7042; J7060; P9047